=== PATIENT | male | born 1950 | race Caucasian/White ===

== ENCOUNTER 2016-10-13 21:17 | Inpatient (IN) ==
[2016-10-13] MEDS ORDERED: 0.9 % Sodium Chloride 1,000 ML IVC ONE (22:35)
[2016-10-13 23:37] LABS: Basophils % 0.1 %; Eosinophils % 0.1 %; Hematocrit 45.7 % (37.5-50.1); Hemoglobin 15.1 g/dL (12.9-16.9); Immature Granulocytes % 0.6 % (0-4); Lymphocytes # 0.6 K/mcL (0.6-4.6); Lymphocytes % 3.7 %; Mean Corpuscular Hemoglobin 30.8 pg (28.0-33.3); Mean Corpuscular Volume 93.1 fL (83.0-100.0); Mean Platelet Volume 9.4 fL (9.4-12.4); Monocytes # 0.9 K/mcL (0.0-1.3); Monocytes % 5.8 %; Neutrophils # 13.2 K/mcL (1.6-8.9); Platelet Count 144 K/mcL (140-400); Red Blood Count 4.91 M/mcL (4.19-5.50); Red Cell Distribution Width 13.7 % (11.5-14.5); Segmented Neutrophils % 89.7 %
[2016-10-13 23:53] LABS: Alanine Aminotransferase 28 Units/L (0-55); Albumin 3.7 g/dL (3.5-5.0); Alkaline Phosphatase 95 Units/L (38-126); Aspartate Amino Transferase 28 Units/L (5-34); BUN/Creatinine Ratio 14 (6-26); Bilirubin,Total 1.5 mg/dL (0.2-1.2); Blood Urea Nitrogen 17 mg/dL (8-26); Calcium 10.1 mg/dL (8.6-10.8); Carbon Dioxide 23 mEq/L (19-29); Chloride 105 mEq/L (98-109); Globulin 3.7 g/dL (2.4-3.5); Glucose 113 mg/dL (70-99); Magnesium 1.4 mg/dL (1.6-2.6); Osmolality,Calculated 288 (280-300); Potassium 3.8 mEq/L (3.5-4.5); Sodium 138 mEq/L (136-145); Total Protein 7.4 g/dL (6.0-8.3); eGFR For African Americans > 60 (> 60); eGFR For Non-African Americans 58 (> 60)
[2016-10-13 23:56] LABS: Phosphorous < 0.7 mg/dL (2.3-4.7)
[2016-10-14 00:45] LABS: Thyroid Stimulating Hormone 1.512 mcIU/mL (0.350-4.840)
[2016-10-14] MEDS ORDERED: Vancomycin 1,000 MG in D5% in Water 250 ML IVPB ONE (00:59)
[2016-10-14] MEDS ORDERED: *HR* Morphine 2 MG/ML SYRINGE IVP ONE (00:59)
[2016-10-14] MEDS ORDERED: Lidocaine Jelly 11 ml Syringe TP ONE (00:59)
[2016-10-14] MEDS ORDERED: Ondansetron 4 MG/2 ML VIAL IVP ONE (00:59)
--- NOTE | 2016-10-14 02:00 | Emergency Department Note ---
Disposition Clinical Impression: Altered mental status Sepsis Qualifiers: Sepsis type: sepsis due to unspecified organism Qualified Code(s): A41.9 - Sepsis, unspecified organism Disposition: Admitted As Inpatient Condition: Fair General Adult HPI - General Chief complaint: ED Weakness Stated complaint: AMS onset 2 hours ago Time Seen by Provider: 10/13/16 22:34 Source: family Mode of arrival: private vehicle Limitations: no limitations Nursing Notes Reviewed: Yes Vital Signs Reviewed: Yes - History of Present Illness HPI Narrative: 66-year-old male presents to the emergency department with concerns of a possible early cellulitis and altered mental status. at the bedside states that patient has had several episodes of lower extremity cellulitis and "this is usually how it presents." Additionally, notes that patient has had elevated ammonia levels in the past. She denies any recent head injury or trauma. Patient is alert and oriented 3. Pain Scale: 0 Consistency: constant Improves with: nothing Worsens with: nothing Associated symptoms: Reports: fever/chills, malaise Treatments Prior to Arrival: none - Related Data Home Medications Medication Instructions Recorded Confirmed Omeprazole [PriLOSEC] 20 mg PO DAILY 09/28/14 10/14/16 Propranolol [Inderal] 10 mg PO BID 09/28/14 10/14/16 Warfarin [Coumadin] 7.5 mg PO QAM 09/28/14 10/14/16 FLUoxetine HCl [PROzac] 10 mg PO DAILY 10/14/16 10/14/16 Tramadol HCl [Ultram] 50 mg PO TID PRN 10/14/16 10/14/16 Allergies Allergy/AdvReac Type Severity Reaction Status Date / Time citalopram [From Celexa] AdvReac Mild Headache Verified 10/13/16 21:57 All systems ED: reviewed and negative except as stated. Constitutional: Reports: fever, chills Cardiovascular: Denies: chest pain Respiratory: Denies: dyspnea Gastrointestinal: Denies: abdominal pain, nausea, vomiting Musculoskeletal: Denies: back pain, neck pain Integumentary: Denies: rash, abrasion, lesions Neurological: Denies: headache Psychiatric: Denies: anxiety, depression, suicidal thoughts, homicidal thoughts Past Medical History - Past Medical History Attestation: Yes The following information was validated with the patient. Source: patient, nursing notes reviewed Medical history: Reports: DVT, GERD, hypertension, other Surgical history: Reports: appendectomy, bariatric surgery, cholecystectomy Psychiatric history: Reports: depression - Social History Smoking Status: Never smoker Smokeless Tobacco Status: No Alcohol use: Reports: occasionally Drug use: Reports: none Physical Exam - General Limitations: no limitations General appearance: alert, in no apparent distress - Head Head exam: atraumatic, normocephalic, normal inspection - Eye Eye exam: Present: normal appearance, PERRL - Neck Neck exam: Present: normal inspection, full ROM, trachea midline - Chest Chest inspection: Present: normal inspection, symmetric chest wall rise - Respiratory Respiratory exam: Present: normal lung sounds bilaterally - Cardiovascular Cardiovascular exam: Present: regular rate, normal rhythm, normal heart sounds - Extremities Exam Extremities exam: Present: normal inspection, full ROM. Absent: tenderness, pedal edema - Expanded Lower Extremity Exam Gait: observed and normal - Back Exam Back exam: Present: normal inspection, full ROM. Absent: tenderness - Neurological Exam Neurological exam: Present: alert, oriented X3 - Psychiatric Psychiatric exam: Present: normal affect, normal mood - Skin Skin exam: Present: other Course Course Narrative: Patient presented tachycardic, somnolent and appears ill on exam. Workup shows an elevation in his white blood cell count as well as an elevated lactic acid. Left leg is erythematous and consistent with early cellulitis. Erythema and induration extends from the ankle up to the upper thigh. Plan is to admit patient to the hospitalist for IV antibiotics and observation. - Consultations Consultation #1: Patient accepted by the hospitalist. Vital Signs Temperature 98.7 F 10/13/16 21:50 Pulse Rate 120 10/13/16 21:50 Respiratory Rate 20 10/13/16 21:50 Blood Pressure 133/74 10/13/16 21:50 O2 Sat by Pulse Oximetry 93 10/13/16 21:50 Temperature 97.9 F 10/19/16 11:02 Pulse Rate 88 10/19/16 11:02 Respiratory Rate 14 10/19/16 11:02 Blood Pressure 144/83 10/19/16 11:02 O2 Sat by Pulse Oximetry 97 10/19/16 11:02 Oxygen Delivery Oxygen Delivery Nasal Cannula Medical Decision Making - Lab Data Lab results reviewed: Yes I reviewed the patient's lab results. Result diagrams: 10/19/16 05:00 10/19/16 05:00 Lab Results 10/13/16 10/13/16 10/13/16 Range/Units 22:02 23:23 23:23 WBC 14.7 H (4.3-11.1) K/mcL RBC 4.91 (4.19-5.50) M/mcL Hgb 15.1 (12.9-16.9) g/dL Hct 45.7 (37.5-50.1) % MCV 93.1 (83.0-100.0) fL MCH 30.8 (28.0-33.3) pg MCHC 33.0 (31.6-35.5) g/dL RDW 13.7 (11.5-14.5) % Plt Count 144 (140-400) K/mcL MPV 9.4 (9.4-12.4) fL Immature Gran % 0.6 (0-4) % Seg Neutrophils % 89.7 % Lymphocytes % 3.7 % Monocytes % 5.8 % Eosinophils % 0.1 % Basophils % 0.1 % Neutrophils # 13.2 H (1.6-8.9) K/mcL Lymphocytes # 0.6 (0.6-4.6) K/mcL Monocytes # 0.9 (0.0-1.3) K/mcL Eosinophils # 0.0 (0.0-0.6) K/mcL Basophils # 0.0 (0.0-0.2) K/mcL PT (9.4-12.1) Seconds INR Sodium 138 (136-145) mEq/L Potassium 3.8 (3.5-4.5) mEq/L Chloride 105 (98-109) mEq/L Carbon Dioxide 23 (19-29) mEq/L BUN 17 (8-26) mg/dL Creatinine 1.25 (0.72-1.25) mg/dL Est GFR ( Amer) > 60 (> 60) Est GFR (Non-Af Amer) 58 L (> 60) BUN/Creatinine Ratio 14 (6-26) Glucose 113 H (70-99) mg/dL POC Glucose 124 H (58-89) Calculated Osmolality 288 (280-300) Lactic Acid (0.5-2.2) mmol/L Calcium 10.1 (8.6-10.8) mg/dL Phosphorus < 0.7 L* (2.3-4.7) mg/dL Magnesium 1.4 L (1.6-2.6) mg/dL Total Bilirubin 1.5 H (0.2-1.2) mg/dL AST 28 (5-34) Units/L ALT 28 (0-55) Units/L Alkaline Phosphatase 95 (38-126) Units/L Ammonia (18-72) mcmol/L Troponin I (0-0.03) ng/mL Serum Total Protein 7.4 (6.0-8.3) g/dL Albumin 3.7 (3.5-5.0) g/dL Globulin 3.7 H (2.4-3.5) g/dL Albumin/Globulin Ratio 1.0 L (1.1-2.2) TSH 1.512 (0.350-4.840) mcIU/mL Urine Color (Yellow) Urine Clarity (Clear) Urine pH (5.0-8.0) pH Units Ur Specific [place] (1.010-1.025) Urine Protein (Neg-Trace) mg/dL Urine Glucose (UA) (Normal) mg/dL Urine Ketones (Negative) mg/dL Urine Blood (Negative) Urine Nitrite (Negative) Urine Bilirubin (Negative) Urine Urobilinogen (Normal) mg/dL Ur Leukocyte Esterase (Negative) Urine Microscopic RBC (0-3) per hpf Urine Microscopic WBC (0-3) per hpf Ur Squamous Epith Cells (None-Few) per lpf Urine Bacteria (None-Few) per hpf Hyaline Casts (None-Few) per lpf Urine Yeast Ur Culture Indicated? (NO) 10/13/16 10/13/16 10/13/16 Range/Units 23:23 23:23 23:23 WBC (4.3-11.1) K/mcL RBC (4.19-5.50) M/mcL Hgb (12.9-16.9) g/dL Hct (37.5-50.1) % MCV (83.0-100.0) fL MCH (28.0-33.3) pg MCHC (31.6-35.5) g/dL RDW (11.5-14.5) % Plt Count (140-400) K/mcL MPV (9.4-12.4) fL Immature Gran % (0-4) % Seg Neutrophils % % Lymphocytes % % Monocytes % % Eosinophils % % Basophils % % Neutrophils # (1.6-8.9) K/mcL Lymphocytes # (0.6-4.6) K/mcL Monocytes # (0.0-1.3) K/mcL Eosinophils # (0.0-0.6) K/mcL Basophils # (0.0-0.2) K/mcL PT (9.4-12.1) Seconds INR Sodium (136-145) mEq/L Potassium (3.5-4.5) mEq/L Chloride (98-109) mEq/L Carbon Dioxide (19-29) mEq/L BUN (8-26) mg/dL Creatinine (0.72-1.25) mg/dL Est GFR ( Amer) (> 60) Est GFR (Non-Af Amer) (> 60) BUN/Creatinine Ratio (6-26) Glucose (70-99) mg/dL POC Glucose (58-89) Calculated Osmolality (280-300) Lactic Acid 2.5 H (0.5-2.2) mmol/L Calcium (8.6-10.8) mg/dL Phosphorus (2.3-4.7) mg/dL Magnesium (1.6-2.6) mg/dL Total Bilirubin (0.2-1.2) mg/dL AST (5-34) Units/L ALT (0-55) Units/L Alkaline Phosphatase (38-126) Units/L Ammonia 35 (18-72) mcmol/L Troponin I 0.00 (0-0.03) ng/mL Serum Total Protein (6.0-8.3) g/dL Albumin (3.5-5.0) g/dL Globulin (2.4-3.5) g/dL Albumin/Globulin Ratio (1.1-2.2) TSH (0.350-4.840) mcIU/mL Urine Color (Yellow) Urine Clarity (Clear) Urine pH (5.0-8.0) pH Units Ur Specific [place] (1.010-1.025) Urine Protein (Neg-Trace) mg/dL Urine Glucose (UA) (Normal) mg/dL Urine Ketones (Negative) mg/dL Urine Blood (Negative) Urine Nitrite (Negative) Urine Bilirubin (Negative) Urine Urobilinogen (Normal) mg/dL Ur Leukocyte Esterase (Negative) Urine Microscopic RBC (0-3) per hpf Urine Microscopic WBC (0-3) per hpf Ur Squamous Epith Cells (None-Few) per lpf Urine Bacteria (None-Few) per hpf Hyaline Casts (None-Few) per lpf Urine Yeast Ur Culture Indicated? (NO) 10/14/16 10/14/16 10/14/16 Range/Units 01:57 11:33 14:35 WBC (4.3-11.1) K/mcL RBC (4.19-5.50) M/mcL Hgb (12.9-16.9) g/dL Hct (37.5-50.1) % MCV (83.0-100.0) fL MCH (28.0-33.3) pg MCHC (31.6-35.5) g/dL RDW (11.5-14.5) % Plt Count (140-400) K/mcL MPV (9.4-12.4) fL Immature Gran % (0-4) % Seg Neutrophils % % Lymphocytes % % Monocytes % % Eosinophils % % Basophils % % Neutrophils # (1.6-8.9) K/mcL Lymphocytes # (0.6-4.6) K/mcL Monocytes # (0.0-1.3) K/mcL Eosinophils # (0.0-0.6) K/mcL Basophils # (0.0-0.2) K/mcL PT 24.0 H (9.4-12.1) Seconds INR 2.2 Sodium (136-145) mEq/L Potassium (3.5-4.5) mEq/L Chloride (98-109) mEq/L Carbon Dioxide (19-29) mEq/L BUN (8-26) mg/dL Creatinine (0.72-1.25) mg/dL Est GFR ( Amer) (> 60) Est GFR (Non-Af Amer) (> 60) BUN/Creatinine Ratio (6-26) Glucose (70-99) mg/dL POC Glucose (58-89) Calculated Osmolality (280-300) Lactic Acid 2.9 H (0.5-2.2) mmol/L Calcium (8.6-10.8) mg/dL Phosphorus (2.3-4.7) mg/dL Magnesium (1.6-2.6) mg/dL Total Bilirubin (0.2-1.2) mg/dL AST (5-34) Units/L ALT (0-55) Units/L Alkaline Phosphatase (38-126) Units/L Ammonia (18-72) mcmol/L Troponin I (0-0.03) ng/mL Serum Total Protein (6.0-8.3) g/dL Albumin (3.5-5.0) g/dL Globulin (2.4-3.5) g/dL Albumin/Globulin Ratio (1.1-2.2) TSH (0.350-4.840) mcIU/mL Urine Color Dark Yellow (Yellow) Urine Clarity Cloudy A (Clear) Urine pH 6.0 (5.0-8.0) pH Units Ur Specific [place] 1.020 (1.010-1.025) Urine Protein Trace (Neg-Trace) mg/dL Urine Glucose (UA) Normal (Normal) mg/dL Urine Ketones Trace H (Negative) mg/dL Urine Blood Moderate H (Negative) Urine Nitrite Negative (Negative) Urine Bilirubin Small H (Negative) Urine Urobilinogen Normal (Normal) mg/dL Ur Leukocyte Esterase Small H (Negative) Urine Microscopic RBC 3-5 H (0-3) per hpf Urine Microscopic WBC 5-15 H (0-3) per hpf Ur Squamous Epith Cells Moderate H (None-Few) per lpf Urine Bacteria Moderate H (None-Few) per hpf Hyaline Casts Few (None-Few) per lpf Urine Yeast Test Not Performed Ur Culture Indicated? YES A (NO) - Radiology Data Radiology results reviewed: Yes I reviewed the patient's radiology results. Attestation Statement - Attestation Attestation: I, Hiram Godfrey MD, personally evaluated this patient and discussed their management with the midlevel provicer, PAC/PMP. I reviewed the midlevel provider 's note and agree with the documented findings, medical decision making, and plan of care. 66-year-old male presents to the emergency department with complaining of increased confusion and generalized weakness was just started this evening. She reports it usually gets like this when he has an infection. He has a history of cellulitis of his right leg. Tonight he complains of some pain in the left lateral thigh. He has not noticed any fever. He denies any chest pain. He does admit to some mild shortness of breath. No vomiting or diarrhea. No abdominal pain. No GI bleed symptoms. No UTI symptoms. On examination patient is a well-developed morbidly obese elderly male in no acute distress. He is alert. There is no cyanosis or diaphoresis. Chest is nontender to palpation. Breath sounds are clear and equal bilaterally. Heart regular rate and rhythm. Abdomen soft and nontender with normal bowel sounds. There is erythema and warmth to touch with induration over the mid to lower left lateral thigh. This area is moderately tender to palpation. There is also some mild erythema at the left lower leg. Chest x-ray negative. Head CT negative. Labs reviewed. The hospitalist, Dr. Hancock, was consulted and accepted admission of the patient.
[2016-10-14 02:11] LABS: Bilirubin,Urine Small (Negative); Blood,Urine Moderate (Negative); Clarity,Urine Cloudy (Clear); Color,Urine Dark Yellow (Yellow); Glucose,Urine (UA) Normal (Normal); Ketones,Urine Trace mg/dL (Negative); Leukocyte Esterase,Urine Small (Negative); Nitrite,Urine Negative (Negative); Protein,Urine Trace mg/dL (Neg-Trace); Urobilinogen,Urine Normal (Normal)
[2016-10-14 02:13] LABS: Hyaline Casts,Urine Few per lpf (None-Few)
[2016-10-14 02:26] LABS: Bacteria,Urine Moderate per hpf (None-Few); Squamous Epithelial Cell,Urine Moderate per lpf (None-Few)
[2016-10-14] MEDS ORDERED: Naloxone 0.4 MG/ML INJ IVP PRN (08:22)
[2016-10-14] MEDS ORDERED: Ondansetron 4 MG/2 ML VIAL IVP PRN (08:22)
[2016-10-14] MEDS ORDERED: Magnesium Sulfate 2 GM in D5% in Water 100 ML IVPB ONE (08:25)
[2016-10-14] MEDS: Vancomycin 2,000 MG in D5% in Water 500 ML IVPB SCH (10:47)
[2016-10-14] MEDS: Pantoprazole 40 MG VIAL IVP SCH (10:48)
[2016-10-14] MEDS ORDERED: Sodium Phosphate 30 MMOL in D5% in Water 100 ML IVPB ONE (11:03)
--- NOTE | 2016-10-14 11:13 | Internal Med History&Physical ---
<Gabi Chapman - Last Filed: 10/14/16 16:07> Date of Encounter: 10/14/16 Time of Encounter: 10:00 Assessment and Plan (1) Sepsis Current visit: Yes Status: Acute 1 patient presented with acute onset confusion tachycardic elevated lactate leukocytosis-blood cultures were obtained patient was given IV fluid and antibiotic coverage-we will continue with vancomycin and Rocephin 2 we will give IV fluids 3 continue trending lactates 4 continuous cardiac monitoring 5 monitor intake and output daily weights Qualifiers: Sepsis type: sepsis due to unspecified organism Qualified Code(s): A41.9 - Sepsis, unspecified organism (2) Metabolic encephalopathy Current visit: Yes Status: Acute 1 patient has been experiencing increased confusion over the past 24 hours. Most likely related to infectious process-cellulitis as well as UTI we will continue IV fluids and antibiotics and monitor lactate level. 2 place patient on fall precautions (3) Cellulitis Current visit: Yes Status: Acute 1 we will continue with vancomycin-blood cultures have been obtained 2 we will obtain a venous Doppler to rule out possibility of DVT Qualifiers: Site of cellulitis: extremity Site of cellulitis of extremity: lower extremity Laterality: left Qualified Code(s): L03.116 - Cellulitis of left lower limb (4) UTI (urinary tract infection) Current visit: Yes Status: Acute 1 we will continue with zosyn pending culture sensitivity 2 continue with IV fluids Qualifiers: Urinary tract infection type: acute cystitis Hematuria presence: with hematuria Qualified Code(s): N30.01 - Acute cystitis with hematuria (5) Hypertension Current visit: No Status: Chronic 1 presently controlled we will hold antihypertensives due to sepsis and resume prior to discharge Qualifiers: Hypertension type: essential hypertension Qualified Code(s): I10 - Essential (primary) hypertension (6) DVT, lower extremity, recurrent Current visit: No Status: Chronic 1 patient has history of recurrent DVTs. We will obtain venous Doppler of left leg to rule out possibility DVT. Unsure if he has been taking his Coumadin due to his confusion. We will check coags. We will continue with his Coumadin Qualifiers: Laterality: bilateral Qualified Code(s): I82.403 - Acute embolism and thrombosis of unspecified deep veins of lower extremity, bilateral Internal Medicine - H&P: HPI Chief complaint: Altered mental state Admitted From: Emergency Dept Plans for Post Hospital Care: Home History of present illness: Mr. Villegas is a 66 year old male past medical history of recurrent DVTs most recent was 11/20, rheumatic fever chronic cellulitis depression. Information obtained from medical records due to patient is confused. According to emergency room records patient was brought to Hospital per his that he has been experiencing confusion and previously when he had cellulitis as well as a small bowel obstruction he was confused and ammonia was elevated. Upon presentation patient was tachycardic lab work revealed leukocytosis as well as elevated lactate. His lower left leg was erythematous extending from ankle up to upper thigh. CT of head was obtained which was negative ammonia levels within normal limits urinalysis did reveal UTI. She was given IV fluids and IV antibiotics blood cultures have been obtained. Upon assessment patient is alert and oriented to name and he knows that he is in the hospital and visits the year 2016 however on questioning what happened to him to bring her to the hospital he repeatedly states that he has to urinate. His lung sounds are clear heart sounds are regular abdomen soft nontender. Right leg is discolored from carrion down to ankles pulses are present but weak. Left leg has swelling and redness extending from ankle to thigh tender to touch and warm. Pulses are strong bilaterally. He is hemodynamically stable at this time. I reviewed this case with Dr. Wooten who agrees with plan. 6 Past Med Surg Social Fam HX - Past Medical History Medical history: DVT, GERD, hypertension, other Psychiatric history: depression - Past Surgical History Surgical History: appendectomy, bariatric surgery, cholecystectomy - Social History Smoking Status: Never smoker Smokeless Tobacco Status: No Alcohol use: occasionally Drug use: none - Family History Mother Living Status: Still Living Hx Family Cardiac Disorders: Yes (CVA) Father Living Status: Hx Family Cardiac Disorders: Yes Internal Medicine - H&P: Meds Omeprazole [PriLOSEC] 20 mg PO DAILY 09/28/14 [History] Propranolol [Inderal] 10 mg PO BID 09/28/14 [History] Warfarin [Coumadin] 7.5 mg PO QAM 09/28/14 [History] FLUoxetine HCl [PROzac] 10 mg PO DAILY 10/14/16 [History] Tramadol HCl [Ultram] 50 mg PO TID PRN 10/14/16 [History] 3 Allergy/AdvReac Type Severity Reaction Status Date / Time citalopram [From Celexa] AdvReac Mild Headache Verified 10/13/16 21:57 ROS unobtainable: due to mental status All Systems PM: A 10-system review of systems was performed and is negative for pertinent findings except as documented above in the HPI. - Constitutional Vitals: Temp Pulse Resp BP Pulse Ox 98.6 F 94 15 135/79 93 10/14/16 07:27 10/14/16 07:27 10/14/16 07:27 10/14/16 07:27 10/14/16 07:27 General appearance: Present: A&O X 3 Exam: He is unable to answer questions she continually repeats I have to urinate-and talks about how he has been incontinent - Head Head exam: Present: atraumatic, normocephalic - Eye Eye exam: Present: PERRL, conjuntiva pink, sclera anicteric Pupils: Present: PERRL - Neck Neck exam general surgery: Present: supple, trachea midline. Absent: lymphadenopathy - Respiratory Respiratory exam: Present: CTAB. Absent: accessory muscle use, rales, rhonchi, wheezes - Cardiovascular Cardiovascular exam: Present: RRR, +S1, +S2. Absent: diastolic murmur, gallop, rubs, systolic murmur - GI/Abdominal GI/Abdominal exam: Present: normal bowel sounds, soft, no peritoneal signs. Absent: distended, tenderness - Extremities Exam Extremities exam: Present: tenderness, warm, radial pulses palpable and symmetrical. Absent: calf tenderness, cyanotic, pedal edema - Expanded Lower Extremities Exam Lower Leg exam: Present: erythema, swelling, tenderness - Neurological Exam Neurological exam: Present: altered, CN II-XII intact, strengths equal and symetr throughout - Skin Skin exam: Present: dry, intact Internal Med - H&P Results - Labs CBC & Chem 7: 10/13/16 23:23 10/13/16 23:23 - Diagnostic Studies Other Images Additional comments: Chest X-Ray 10/13/16 22:35 IMPRESSION: Negative portable chest. D/ / Mina Lobato MD / Mina Lobato MD Interpreting Provider: Mina Lobato MD Head CT 10/13/16 22:35 IMPRESSION: No acute intracranial abnormality. D/ / Mina Lobato MD / Mina Lobato MD Interpreting Provider: Mina Lobato MD <Wilmer Wooten - Last Filed: 10/15/16 07:43> Date of Encounter: 10/14/16 Internal Medicine - H&P: HPI History of present illness: Mr. Villegas is a 66 year old male All Systems PM: A 10-system review of systems was performed and is negative for pertinent findings except as documented above in the HPI. - Constitutional Vitals: Temp Pulse Resp BP Pulse Ox 99.0 F 89 16 128/73 93 10/14/16 11:16 10/14/16 11:16 10/14/16 11:16 10/14/16 11:16 10/14/16 11:16 Internal Med - H&P Results - Labs CBC & Chem 7: 10/15/16 04:10 10/15/16 04:10 - Attending Attestation I independently obtained history and examined this patient and my medical decision-making was reviewed with the nurse practitioner, Gabi Chapman. I agree with the documented findings, disposition and treatment plan as described. My findings are summarized below: Patient presented to the hospital due to leg redness and pain, family reported that he was slightly altered from his baseline. On my examination he is in no acute distress, awake alert oriented 3. Heart is regular, lungs are clear, abdomen is obese, soft and nontender Skin: Erythema and warmth consistent with cellulitis of the distal left lower leg in patchy areas of erythema also noted in the left calf and buttocks. Plan: For left lower extremity cellulitis we will treat him with IV vancomycin. He also has altered mental status, CT of the head was negative for acute process. UA was positive for leukocyte and WBC concerning for UTI. I will therefore add Zosyn to his antibiotic therapy. He is chronically anticoagulated with warfarin for history of DVT. I will obtain a PT/INR. We will continue with warfarin.
[2016-10-14] MEDS: *HR* HYDROcodone/Acet 5/325 mg TABLET PO PRN (11:44)
[2016-10-14] MEDS: 0.9 % Sodium Chloride 1,000 ML IVC SCH (13:18)
[2016-10-14] MEDS ORDERED: 0.9 % Sodium Chloride 1,000 ML IVC ONE (14:49)
[2016-10-14 15:06] LABS: INR 2.2
[2016-10-14] MEDS ORDERED: Warfarin perPT PO PRN (18:00)
[2016-10-14] MEDS: Acetaminophen 325 MG TABLET PO PRN (19:24)
[2016-10-14] MEDS: *HR* Warfarin 7.5 MG TABLET PO SCH (19:25)
[2016-10-15] MEDS: Vancomycin 2,000 MG in D5% in Water 500 ML IVPB SCH ×2 (01:31→12:12)
[2016-10-15] MEDS: Acetaminophen 325 MG TABLET PO PRN ×2 (03:31→09:25)
[2016-10-15] MEDS: 0.9 % Sodium Chloride 1,000 ML IVC SCH ×3 (03:32→16:08)
[2016-10-15 04:34] LABS: Basophils % 0.1 %; Hematocrit 37.6 % (37.5-50.1); Immature Granulocytes % 1.6 % (0-4); Lymphocytes # 0.6 K/mcL (0.6-4.6); Lymphocytes % 4.6 %; Mean Corpuscular HGB Conc 33.8 g/dL (31.6-35.5); Mean Corpuscular Hemoglobin 31.4 pg (28.0-33.3); Mean Corpuscular Volume 92.8 fL (83.0-100.0); Mean Platelet Volume 9.6 fL (9.4-12.4); Monocytes # 0.4 K/mcL (0.0-1.3); Monocytes % 2.9 %; Platelet Count 110 K/mcL (140-400); Red Blood Count 4.05 M/mcL (4.19-5.50); Red Cell Distribution Width 14.3 % (11.5-14.5); Segmented Neutrophils % 90.8 %
[2016-10-15 04:41] LABS: Prothrombin Time 21.9 Seconds (9.4-12.1)
[2016-10-15 04:50] LABS: Hemoglobin 12.7 g/dL (12.9-16.9); Neutrophils # 12.4 K/mcL (1.6-8.9)
[2016-10-15 04:52] LABS: BUN/Creatinine Ratio 18 (6-26); Blood Urea Nitrogen 22 mg/dL (8-26); Calcium 8.8 mg/dL (8.6-10.8); Carbon Dioxide 22 mEq/L (19-29); Chloride 101 mEq/L (98-109); Glucose 137 mg/dL (70-99); Magnesium 1.5 mg/dL (1.6-2.6); Osmolality,Calculated 277 (280-300); Phosphorous 1.6 mg/dL (2.3-4.7); Potassium 3.6 mEq/L (3.5-4.5); eGFR For African Americans > 60 (> 60); eGFR For Non-African Americans > 60 (> 60)
[2016-10-15 04:53] LABS: Sodium 131 mEq/L (136-145)
[2016-10-15 05:12] LABS: Platelet Estimate Decreased (Normal)
[2016-10-15] MEDS ORDERED: *HR* Enoxaparin 40 MG/0.4 ML SYRINGE SQ SCH (06:00)
--- NOTE | 2016-10-15 08:25 | Venous Imaging Report ---
LE Venous Duplex Patient Name:David Villegas Order Number:[id number] Procedure Date:10/14/2016 Date:1950ge:66 yrs Gender:Male Location:[facility] Room #: 3B11 Manager Therapy:Gloria Botello RDCS Referring MD:Gabi Chapman CNP infantryman:Corine Clancy MD Reading MD:Gonzalez Duenas MD Primary Indications:Swelling, redness, tenderness left LE Secondary Indications: Risk Factors Yes/No Hx of DVT Unknown Anticoagulants Impressions: Normal left lower extremity deep and superficial venous exam. Normal contralateral common femoral vein. Findings Prior Study: No prior study available for comparison. Lower Extremity Venous Duplex Side Vein Compress Spontaneous Flow Augment Diameter (cm) Depth (cm) Left Distal Iliac Normal Yes Phasic Yes Left Common Femoral Normal Yes Phasic Yes Left Superficial Femoral Normal Yes Phasic Yes Left Popliteal Normal Yes Phasic Yes Left Posterior Tibial Normal Yes Phasic Yes Left Peroneal Normal Yes Phasic Yes Left Saphenofemoral [place] Normal Yes Phasic Yes Left Great Saphenous Normal Yes Phasic Yes Left Lesser Saphenous Normal Yes Phasic Yes Right Common Femoral Normal Yes Phasic Yes Updated by Gonzalez Duenas MD on 10/15/2016 7:22:50 AM electronically signed on 10/15/2016 7:23:03 AM with status of Final
[2016-10-15] MEDS ORDERED: Vancomycin (wt based) 1,000 MG VIAL IVPB SCH (09:00)
[2016-10-15] MEDS: Pantoprazole 40 MG VIAL IVP SCH (09:25)
[2016-10-15] MEDS: FLUoxetine HCl 10 MG CAPSULE PO SCH (09:25)
[2016-10-15] MEDS: Piperacillin/Tazobactam 3.375 GM in D5% in Water (Mini-Bag+) 100 ML IVPB SCH (16:08)
[2016-10-15] MEDS: *HR* Warfarin 7.5 MG TABLET PO SCH (17:18)
--- NOTE | 2016-10-15 20:17 | Internal Med Progress Note ---
Date of Encounter: 10/15/16 Time of Encounter: 09:00 - Assessment and plan (1) Morbid obesity with BMI of 45.0-49.9, adult Current Visit: Yes Status: Acute Assessment and plan: Outpatient weight loss regimen. (2) Sepsis Current Visit: Yes Status: Acute Assessment and plan: Broad spectrum IV antibiotics. Follow-up blood cultures. Qualifiers: Sepsis type: sepsis due to unspecified organism Qualified Code(s): A41.9 - Sepsis, unspecified organism (3) Cellulitis Current Visit: Yes Status: Acute Assessment and plan: Continue IV vancomycin. Qualifiers: Site of cellulitis: extremity Site of cellulitis of extremity: lower extremity Laterality: left Qualified Code(s): L03.116 - Cellulitis of left lower limb (4) UTI (urinary tract infection) Current Visit: Yes Status: Acute Assessment and plan: Follow-up culture. Continue with Zosyn and vancomycin. Qualifiers: Urinary tract infection type: acute cystitis Hematuria presence: with hematuria Qualified Code(s): N30.01 - Acute cystitis with hematuria (5) Metabolic encephalopathy Current Visit: Yes Status: Acute Assessment and plan: Improved with treatment of sepsis. Avoid sedatives. He is at high risk for morbidity mortality and complications due to IV vancomycin which requires blood level monitoring for toxicity. - Subjective Interval history: Patient admitted for altered mental status and left lower extremity pain and redness. Reports that mental status has improved since yesterday. No changes in lower extremity pain and redness. - Constitutional Vitals: Temp Pulse Resp BP Pulse Ox 98.8 F 98 18 150/88 96 10/15/16 18:59 10/15/16 18:59 10/15/16 18:59 10/15/16 18:59 10/15/16 18:59 General appearance: Present: A&O X 3 - Eye Eye exam: Present: PERRL, conjuntiva pink, sclera anicteric Pupils: Present: PERRL - Respiratory Respiratory exam: Present: CTAB. Absent: accessory muscle use, rales, rhonchi, wheezes - Cardiovascular Cardiovascular exam: Present: RRR, +S1, +S2. Absent: diastolic murmur, gallop, rubs, systolic murmur - GI/Abdominal GI/Abdominal exam: Present: normal bowel sounds, soft, no peritoneal signs. Absent: distended, tenderness - Extremities Exam Extremities exam: Present: pedal edema, warm, radial pulses palpable and symmetrical. Absent: calf tenderness, cyanotic - Skin Skin exam: Present: erythema (Left lower leg erythema consistent with cellulitis ) Internal Medicine: Result - Labs CBC & Chem 7: 10/15/16 04:10 10/15/16 04:10 Labs: Short CBC 10/15/16 Range/Units 04:10 WBC 13.7 H (4.3-11.1) K/mcL Hgb 12.7 L D (12.9-16.9) g/dL Hct 37.6 (37.5-50.1) % Plt Count 110 L (140-400) K/mcL Neutrophils # 12.4 H (1.6-8.9) K/mcL BMP 10/15/16 04:10 Sodium 131 L D Potassium 3.6 Chloride 101 Carbon Dioxide 22 BUN 22 Creatinine 1.21 Glucose 137 H Calcium 8.8 - ABG Interpretation ABG results: PT/INR, D-dimer PT 21.9 Seconds (9.4-12.1) H 10/15/16 04:10 Consult Discharge Plan - Plan Referrals: Corine Clancy MD [Primary Care Provider] - 10/23/16 1:45 pm
[2016-10-16] MEDS: Piperacillin/Tazobactam 3.375 GM in D5% in Water (Mini-Bag+) 100 ML IVPB SCH ×3 (01:18→23:21)
[2016-10-16] MEDS: Acetaminophen 325 MG TABLET PO PRN ×2 (01:37→07:48)
[2016-10-16] MEDS: Melatonin 3 MG TABLET PO PRN ×2 (02:10→23:26)
[2016-10-16] MEDS: 0.9 % Sodium Chloride 1,000 ML IVC SCH ×2 (02:14→14:30)
[2016-10-16] MEDS ORDERED: Vancomycin 1,750 MG in D5% in Water 500 ML IVPB SCH (06:00)
[2016-10-16 06:19] LABS: Basophils % 0.2 %; Eosinophils % 0.3 %; Hematocrit 35.3 % (37.5-50.1); Immature Granulocytes % 0.8 % (0-4); Lymphocytes # 1.1 K/mcL (0.6-4.6); Lymphocytes % 10.4 %; Mean Corpuscular Hemoglobin 31.5 pg (28.0-33.3); Mean Corpuscular Volume 92.7 fL (83.0-100.0); Mean Platelet Volume 9.7 fL (9.4-12.4); Monocytes # 0.6 K/mcL (0.0-1.3); Monocytes % 5.5 %; Neutrophils # 8.9 K/mcL (1.6-8.9); Nucleated Red Blood Cells 0.2 /100 WBC (0); Platelet Count 124 K/mcL (140-400); Red Blood Count 3.81 M/mcL (4.19-5.50); Red Cell Distribution Width 14.3 % (11.5-14.5); Segmented Neutrophils % 82.8 %
[2016-10-16 06:30] LABS: INR 1.9; Prothrombin Time 20.4 Seconds (9.4-12.1)
[2016-10-16 06:33] LABS: BUN/Creatinine Ratio 13 (6-26); Blood Urea Nitrogen 13 mg/dL (8-26); Calcium 9.3 mg/dL (8.6-10.8); Carbon Dioxide 27 mEq/L (19-29); Chloride 106 mEq/L (98-109); Glucose 107 mg/dL (70-99); Osmolality,Calculated 283 (280-300); Potassium 3.6 mEq/L (3.5-4.5); Sodium 136 mEq/L (136-145); eGFR For African Americans > 60 (> 60); eGFR For Non-African Americans > 60 (> 60)
[2016-10-16 06:44] LABS: Platelet Estimate Decreased (Normal)
[2016-10-16] MEDS: FLUoxetine HCl 10 MG CAPSULE PO SCH (07:48)
[2016-10-16] MEDS: Pantoprazole 40 MG VIAL IVP SCH (07:48)
--- NOTE | 2016-10-16 12:27 | Electrocardiograph Report ---
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
[2016-10-16] MEDS: *HR* Warfarin 7.5 MG TABLET PO SCH (17:25)
[2016-10-16] MEDS ORDERED: Vancomycin 1,250 MG in D5% in Water 250 ML IVPB SCH (18:00)
--- NOTE | 2016-10-16 19:48 | Internal Med Progress Note ---
Date of Encounter: 10/16/16 Time of Encounter: 13:00 - Assessment and plan (1) Morbid obesity with BMI of 45.0-49.9, adult Current Visit: Yes Status: Acute Assessment and plan: Outpatient weight loss regimen. (2) Sepsis Current Visit: Yes Status: Acute Assessment and plan: Broad spectrum IV antibiotics. Follow-up blood cultures. Qualifiers: Sepsis type: sepsis due to unspecified organism Qualified Code(s): A41.9 - Sepsis, unspecified organism (3) Cellulitis Current Visit: Yes Status: Acute Assessment and plan: Continue IV vancomycin. Dosing by levels. Her trough level was slightly high at 20.1 yesterday, dose was adjusted. We will check trough level tomorrow. Monitor kidney function. Qualifiers: Site of cellulitis: extremity Site of cellulitis of extremity: lower extremity Laterality: left Qualified Code(s): L03.116 - Cellulitis of left lower limb (4) UTI (urinary tract infection) Current Visit: Yes Status: Acute Assessment and plan: Follow-up culture. Continue with Zosyn and vancomycin. Qualifiers: Urinary tract infection type: acute cystitis Hematuria presence: with hematuria Qualified Code(s): N30.01 - Acute cystitis with hematuria (5) Metabolic encephalopathy Current Visit: Yes Status: Acute Assessment and plan: Improved with treatment of sepsis. Avoid sedatives. He is at high risk for morbidity mortality and complications due to IV vancomycin which requires blood level monitoring for toxicity. - Subjective Interval history: Patient admitted for altered mental status and left lower extremity pain and redness. Reports that mental status is back to baseline. Left lower extremity pain and tenderness without but it ambulation has improved however he noticed increased redness and swelling. - Constitutional Vitals: Temp Pulse Resp BP Pulse Ox 98.0 F 84 16 147/84 98 10/16/16 18:29 10/16/16 18:29 10/16/16 18:29 10/16/16 18:29 10/16/16 18:29 General appearance: Present: A&O X 3 - Respiratory Respiratory exam: Present: CTAB. Absent: accessory muscle use, rales, rhonchi, wheezes - Cardiovascular Cardiovascular exam: Present: RRR, +S1, +S2. Absent: diastolic murmur, gallop, rubs, systolic murmur - GI/Abdominal GI/Abdominal exam: Present: normal bowel sounds, soft, no peritoneal signs. Absent: distended, tenderness - Extremities Exam Extremities exam: Present: pedal edema, warm, radial pulses palpable and symmetrical. Absent: calf tenderness, cyanotic - Neurological Exam Neurological exam: Present: CN II-XII intact, oriented X3, no focal deficits. Absent: pronater drift, facial droop, speech deficit - Skin Skin exam: Present: dry, erythema (Increasing redness of the left lower extremity ), intact Internal Medicine: Result - Labs CBC & Chem 7: 10/16/16 05:42 10/16/16 05:42 Labs: Short CBC 10/16/16 Range/Units 05:42 WBC 10.7 (4.3-11.1) K/mcL Hgb 12.0 L (12.9-16.9) g/dL Hct 35.3 L (37.5-50.1) % Plt Count 124 L (140-400) K/mcL Neutrophils # 8.9 (1.6-8.9) K/mcL BMP 10/16/16 05:42 Sodium 136 Potassium 3.6 Chloride 106 Carbon Dioxide 27 BUN 13 Creatinine 1.01 Glucose 107 H Calcium 9.3 - ABG Interpretation ABG results: PT/INR, D-dimer PT 20.4 Seconds (9.4-12.1) H 10/16/16 05:42 Consult Discharge Plan - Plan Referrals: Corine Clancy MD [Primary Care Provider] - 10/23/16 1:45 pm
[2016-10-17] MEDS: *HR* HYDROcodone/Acet 5/325 mg TABLET PO PRN (01:05)
[2016-10-17] MEDS: Vancomycin 1,250 MG in D5% in Water 250 ML IVPB SCH ×2 (01:10→13:16)
[2016-10-17 04:27] LABS: Basophils % 0.3 %; Eosinophils # 0.1 K/mcL (0.0-0.6); Eosinophils % 0.9 %; Hematocrit 35.8 % (37.5-50.1); Hemoglobin 11.8 g/dL (12.9-16.9); Immature Granulocytes % 0.8 % (0-4); Lymphocytes # 1.4 K/mcL (0.6-4.6); Lymphocytes % 15.2 %; Mean Corpuscular Hemoglobin 31.1 pg (28.0-33.3); Mean Corpuscular Volume 94.5 fL (83.0-100.0); Monocytes # 0.8 K/mcL (0.0-1.3); Monocytes % 9.2 %; Neutrophils # 6.6 K/mcL (1.6-8.9); Platelet Count 138 K/mcL (140-400); Red Blood Count 3.79 M/mcL (4.19-5.50); Red Cell Distribution Width 14.3 % (11.5-14.5); Segmented Neutrophils % 73.6 %
[2016-10-17 04:38] LABS: BUN/Creatinine Ratio 11 (6-26); Blood Urea Nitrogen 10 mg/dL (8-26); Carbon Dioxide 26 mEq/L (19-29); Chloride 107 mEq/L (98-109); Glucose 106 mg/dL (70-99); Osmolality,Calculated 283 (280-300); Sodium 137 mEq/L (136-145); eGFR For African Americans > 60 (> 60); eGFR For Non-African Americans > 60 (> 60)
[2016-10-17 04:48] LABS: INR 2.2
[2016-10-17] MEDS: Piperacillin/Tazobactam 3.375 GM in D5% in Water (Mini-Bag+) 100 ML IVPB SCH ×3 (06:31→23:39)
[2016-10-17] MEDS: 0.9 % Sodium Chloride 1,000 ML IVC SCH ×2 (06:32→16:27)
[2016-10-17] MEDS: Pantoprazole 40 MG VIAL IVP SCH (09:07)
[2016-10-17] MEDS: FLUoxetine HCl 10 MG CAPSULE PO SCH (09:07)
[2016-10-17] MEDS: *HR* Warfarin 7.5 MG TABLET PO SCH (18:45)
--- NOTE | 2016-10-17 20:02 | Internal Med Progress Note ---
Date of Encounter: 10/17/16 Time of Encounter: 10:00 - Assessment and plan (1) Morbid obesity with BMI of 45.0-49.9, adult Current Visit: Yes Status: Acute Assessment and plan: Outpatient weight loss regimen. (2) Sepsis Current Visit: Yes Status: Acute Assessment and plan: Broad spectrum IV antibiotics. Follow-up blood cultures. Qualifiers: Sepsis type: sepsis due to unspecified organism Qualified Code(s): A41.9 - Sepsis, unspecified organism (3) Cellulitis Current Visit: Yes Status: Acute Assessment and plan: Continue IV vancomycin. Dosing by levels. We will check trough level tomorrow. If there is no improvement with a good trough level I will consider switching to a different antibiotic. Monitor kidney function. Qualifiers: Site of cellulitis: extremity Site of cellulitis of extremity: lower extremity Laterality: left Qualified Code(s): L03.116 - Cellulitis of left lower limb (4) UTI (urinary tract infection) Current Visit: Yes Status: Acute Assessment and plan: Follow-up culture. Continue with Zosyn and vancomycin. Qualifiers: Urinary tract infection type: acute cystitis Hematuria presence: with hematuria Qualified Code(s): N30.01 - Acute cystitis with hematuria (5) Metabolic encephalopathy Current Visit: Yes Status: Acute Assessment and plan: Improved with treatment of sepsis. Avoid sedatives. He is at high risk for morbidity mortality and complications due to IV vancomycin which requires blood level monitoring for toxicity. - Subjective Interval history: Patient reports worsening redness and swelling in his left lower extremity, his mental status has remained at baseline and he reports some improved tenderness in the left foot with bearing weight. - Constitutional Vitals: Temp Pulse Resp BP Pulse Ox 98.3 F 96 12 125/68 96 10/17/16 19:01 10/17/16 19:01 10/17/16 19:01 10/17/16 19:01 10/17/16 19:01 General appearance: Present: A&O X 3 - Respiratory Respiratory exam: Present: CTAB. Absent: accessory muscle use, rales, rhonchi, wheezes - Cardiovascular Cardiovascular exam: Present: RRR, +S1, +S2. Absent: diastolic murmur, gallop, rubs, systolic murmur - GI/Abdominal GI/Abdominal exam: Present: normal bowel sounds, soft, no peritoneal signs. Absent: distended, tenderness - Extremities Exam Extremities exam: Present: pedal edema, warm, radial pulses palpable and symmetrical. Absent: calf tenderness, cyanotic - Neurological Exam Neurological exam: Present: CN II-XII intact, oriented X3, no focal deficits. Absent: pronater drift, facial droop, speech deficit - Skin Skin exam: Present: dry, erythema (Cellulitis of the left lower leg unchanged from yesterday,), intact Internal Medicine: Result - Labs CBC & Chem 7: 10/17/16 04:15 10/17/16 04:15 Labs: Short CBC 10/17/16 Range/Units 04:15 WBC 8.9 (4.3-11.1) K/mcL Hgb 11.8 L (12.9-16.9) g/dL Hct 35.8 L (37.5-50.1) % Plt Count 138 L (140-400) K/mcL Neutrophils # 6.6 (1.6-8.9) K/mcL BMP 10/17/16 04:15 Sodium 137 Potassium 4.0 Chloride 107 Carbon Dioxide 26 BUN 10 Creatinine 0.91 Glucose 106 H Calcium 9.0 - ABG Interpretation ABG results: PT/INR, D-dimer PT 24.0 Seconds (9.4-12.1) H 10/17/16 04:00 Consult Discharge Plan - Plan Referrals: Corine Clancy MD [Primary Care Provider] - 10/23/16 1:45 pm
[2016-10-18] MEDS: Vancomycin 1,250 MG in D5% in Water 250 ML IVPB SCH (00:50)
[2016-10-18 04:48] LABS: Basophils % 0.4 %; Eosinophils # 0.2 K/mcL (0.0-0.6); Eosinophils % 2.9 %; Hematocrit 36.2 % (37.5-50.1); Immature Granulocytes % 1.9 % (0-4); Lymphocytes # 1.5 K/mcL (0.6-4.6); Lymphocytes % 20.8 %; Mean Corpuscular HGB Conc 33.1 g/dL (31.6-35.5); Mean Corpuscular Hemoglobin 31.3 pg (28.0-33.3); Mean Corpuscular Volume 94.3 fL (83.0-100.0); Mean Platelet Volume 10.1 fL (9.4-12.4); Monocytes # 0.9 K/mcL (0.0-1.3); Monocytes % 12.4 %; Neutrophils # 4.5 K/mcL (1.6-8.9); Platelet Count 148 K/mcL (140-400); Red Blood Count 3.84 M/mcL (4.19-5.50); Red Cell Distribution Width 14.6 % (11.5-14.5); Segmented Neutrophils % 61.6 %
[2016-10-18 04:55] LABS: BUN/Creatinine Ratio 10 (6-26); Blood Urea Nitrogen 9 mg/dL (8-26); Calcium 9.1 mg/dL (8.6-10.8); Carbon Dioxide 25 mEq/L (19-29); Chloride 107 mEq/L (98-109); Glucose 94 mg/dL (70-99); Osmolality,Calculated 284 (280-300); Potassium 3.8 mEq/L (3.5-4.5); Sodium 138 mEq/L (136-145); eGFR For African Americans > 60 (> 60); eGFR For Non-African Americans > 60 (> 60)
[2016-10-18 05:01] LABS: INR 2.4; Prothrombin Time 26.7 Seconds (9.4-12.1)
[2016-10-18] MEDS: Piperacillin/Tazobactam 3.375 GM in D5% in Water (Mini-Bag+) 100 ML IVPB SCH (06:40)
[2016-10-18] MEDS ORDERED: Furosemide 40 MG/4 ML VIAL IVP ONE (08:50)
[2016-10-18] MEDS: FLUoxetine HCl 10 MG CAPSULE PO SCH (09:09)
[2016-10-18] MEDS ORDERED: Vancomycin 2,000 MG in D5% in Water 500 ML IVPB SCH (10:00)
[2016-10-18] MEDS: *HR* HYDROcodone/Acet 5/325 mg TABLET PO PRN ×2 (10:29→22:09)
[2016-10-18] MEDS: Furosemide 20 MG/2 ML VIAL IVP SCH (16:07)
[2016-10-18] MEDS: *HR* Warfarin 7.5 MG TABLET PO SCH (16:56)
--- NOTE | 2016-10-18 19:23 | Internal Med Progress Note ---
Date of Encounter: 10/18/16 Time of Encounter: 10:00 - Assessment and plan (1) Morbid obesity with BMI of 45.0-49.9, adult Current Visit: Yes Status: Acute Assessment and plan: Outpatient weight loss regimen. (2) Sepsis Current Visit: Yes Status: Acute Assessment and plan: His white blood cell count is trending down. Blood cultures are negative. Patient has been afebrile. Mental status suspect baseline. Overall generally improving. Broad spectrum IV antibiotics. Follow-up blood cultures. Qualifiers: Sepsis type: sepsis due to unspecified organism Qualified Code(s): A41.9 - Sepsis, unspecified organism (3) Cellulitis Current Visit: Yes Status: Acute Assessment and plan: 10/18/2016: Patient's lower extremity cellulitis appears to be worsening with blister formation. I have incised and debrided the blister and sent a wound culture. I am concerned that infection is possibly caused by Staphylococcus aureus aureus with a high SNEHA for vancomycin. I noticed that dose was decreased from 2 g to 1250 mg and trough is 13. I will aim for a trough of 20- 25 and therefore I will increase the dose back to 2000 mg every 12 hours. I will monitor vancomycin levels closely and carefully. Monitor kidney function closely. I will switch Zosyn to Augmentin since patient has a good oral intake. 10/17/2016: Continue IV vancomycin. Dosing by levels. We will check trough level tomorrow. If there is no improvement with a good trough level I will consider switching to a different antibiotic. Monitor kidney function. Qualifiers: Site of cellulitis: extremity Site of cellulitis of extremity: lower extremity Laterality: left Qualified Code(s): L03.116 - Cellulitis of left lower limb (4) UTI (urinary tract infection) Current Visit: Yes Status: Acute Assessment and plan: Follow-up culture. Continue with Zosyn and vancomycin. Qualifiers: Urinary tract infection type: acute cystitis Hematuria presence: with hematuria Qualified Code(s): N30.01 - Acute cystitis with hematuria (5) Metabolic encephalopathy Current Visit: Yes Status: Acute Assessment and plan: Improved with treatment of sepsis. Avoid sedatives. He is at high risk for morbidity mortality and complications due to IV vancomycin which requires blood level monitoring for toxicity. - Subjective Interval history: 10/18/2016: Patient's left lower extremity redness and swelling has continued to worsen since yesterday. He does report less pain and tenderness in the foot and leg. He denies associated fevers and chills. 10/17/2016: Patient reports worsening redness and swelling in his left lower extremity, his mental status has remained at baseline and he reports some improved tenderness in the left foot with bearing weight. - Constitutional Vitals: Temp Pulse Resp BP Pulse Ox 98.0 F 83 16 143/79 96 10/18/16 18:43 10/18/16 18:43 10/18/16 18:43 10/18/16 18:43 10/18/16 18:43 General appearance: Present: A&O X 3 - Eye Eye exam: Present: PERRL, conjuntiva pink, sclera anicteric Pupils: Present: PERRL - Respiratory Respiratory exam: Present: CTAB. Absent: accessory muscle use, rales, rhonchi, wheezes - Cardiovascular Cardiovascular exam: Present: RRR, +S1, +S2. Absent: diastolic murmur, gallop, rubs, systolic murmur - GI/Abdominal GI/Abdominal exam: Present: normal bowel sounds, soft, no peritoneal signs. Absent: distended, tenderness - Extremities Exam Extremities exam: Present: pedal edema, warm, radial pulses palpable and symmetrical. Absent: calf tenderness, cyanotic - Neurological Exam Neurological exam: Present: CN II-XII intact, oriented X3, no focal deficits. Absent: pronater drift, facial droop, speech deficit - Skin Additional comments: Left lower leg distal tibial area erythema warm and formation of a 5 cm in diameter fluid-filled blister. There are patchy area of erythema extending the upper calf and thigh. Internal Medicine: Result - Labs CBC & Chem 7: 10/18/16 04:30 10/18/16 04:30 Labs: Short CBC 10/18/16 Range/Units 04:30 WBC 7.3 (4.3-11.1) K/mcL Hgb 12.0 L (12.9-16.9) g/dL Hct 36.2 L (37.5-50.1) % Plt Count 148 (140-400) K/mcL Neutrophils # 4.5 (1.6-8.9) K/mcL BMP 10/18/16 04:30 Sodium 138 Potassium 3.8 Chloride 107 Carbon Dioxide 25 BUN 9 Creatinine 0.90 Glucose 94 Calcium 9.1 - ABG Interpretation ABG results: PT/INR, D-dimer PT 26.7 Seconds (9.4-12.1) H 10/18/16 04:30 Consult Discharge Plan - Plan Referrals: Corine Clancy MD [Primary Care Provider] - 10/23/16 1:45 pm
[2016-10-18] MEDS: Vancomycin 2,000 MG in D5% in Water 500 ML IVPB SCH (22:06)
[2016-10-18] MEDS: 0.9 % Sodium Chloride 1,000 ML IVC SCH (23:04)
[2016-10-19] MEDS ORDERED: Vancomycin 1,250 MG in D5% in Water 250 ML IVPB SCH (01:00)
[2016-10-19 05:04] LABS: Basophils # 0.1 K/mcL (0.0-0.2); Basophils % 0.8 %; Eosinophils # 0.2 K/mcL (0.0-0.6); Eosinophils % 2.9 %; Hematocrit 37.7 % (37.5-50.1); Hemoglobin 12.4 g/dL (12.9-16.9); Immature Granulocytes % 4.2 % (0-4); Lymphocytes # 1.5 K/mcL (0.6-4.6); Lymphocytes % 19.8 %; Mean Corpuscular HGB Conc 32.9 g/dL (31.6-35.5); Mean Corpuscular Hemoglobin 30.8 pg (28.0-33.3); Mean Corpuscular Volume 93.5 fL (83.0-100.0); Mean Platelet Volume 9.4 fL (9.4-12.4); Neutrophils # 4.5 K/mcL (1.6-8.9); Platelet Count 169 K/mcL (140-400); Red Blood Count 4.03 M/mcL (4.19-5.50); Red Cell Distribution Width 14.2 % (11.5-14.5); Segmented Neutrophils % 59.3 %
[2016-10-19 05:09] LABS: INR 3.1; Prothrombin Time 33.8 Seconds (9.4-12.1)
[2016-10-19 05:15] LABS: BUN/Creatinine Ratio 12 (6-26); Blood Urea Nitrogen 11 mg/dL (8-26); Calcium 9.3 mg/dL (8.6-10.8); Carbon Dioxide 29 mEq/L (19-29); Chloride 103 mEq/L (98-109); Glucose 102 mg/dL (70-99); Osmolality,Calculated 284 (280-300); Potassium 3.7 mEq/L (3.5-4.5); Sodium 137 mEq/L (136-145); eGFR For African Americans > 60 (> 60); eGFR For Non-African Americans > 60 (> 60)
[2016-10-19] MEDS: Acetaminophen 325 MG TABLET PO PRN (06:45)
[2016-10-19] MEDS: Vancomycin 2,000 MG in D5% in Water 500 ML IVPB SCH ×2 (08:30→21:59)
[2016-10-19] MEDS: FLUoxetine HCl 10 MG CAPSULE PO SCH (08:31)
[2016-10-19 08:54] LABS: C-Reactive Protein 64 mg/L (Less than 5)
[2016-10-19] MEDS ORDERED: Furosemide 40 MG/4 ML VIAL IVP SCH (09:00)
[2016-10-19] MEDS: Furosemide 20 MG/2 ML VIAL IVP SCH (17:15)
--- NOTE | 2016-10-19 19:19 | Internal Med Progress Note ---
Date of Encounter: 10/19/16 Time of Encounter: 09:17 - Assessment and plan (1) Morbid obesity with BMI of 45.0-49.9, adult Current Visit: Yes Status: Acute Assessment and plan: Outpatient weight loss regimen. (2) Sepsis Current Visit: Yes Status: Acute Assessment and plan: His white blood cell count is trending down. Blood cultures are negative. Patient has been afebrile. Mental status suspect baseline. Overall generally improving. Broad spectrum IV antibiotics. Follow-up blood cultures. Qualifiers: Sepsis type: sepsis due to unspecified organism Qualified Code(s): A41.9 - Sepsis, unspecified organism (3) Cellulitis Current Visit: Yes Status: Acute Assessment and plan: 10/19/2016: Lower extremity appears to be slightly better than unchanged. I will give him 24 more hours on 2 g of IV vancomycin before considering switching to daptomycin or linezolid. Continue with Augmentin for coverage of MSSA and sensitive gram-negative rods. The only thing that I do not cover with this combination as ESBL however this would be extremely rare to cause cellulitis and this patient. I have consulted ID over the phone by the ID service is not available over the weekend to see the patient. Vanco trough goal 20-25. A trough level of 27 this morning is acceptable as long as kidney function appears to be improving. I will recheck a level tomorrow. He is at high risk for morbidity mortality and complications due to IV vancomycin which requires close blood level monitoring for toxicity. 10/18/2016 : Patient's lower extremity cellulitis appears to be worsening with blister formation. I have incised and debrided the blister and sent a wound culture. I am concerned that infection is possibly caused by Staphylococcus aureus aureus with a high SNEHA for vancomycin. I noticed that dose was decreased from 2 g to 1250 mg and trough is 13. I will aim for a trough of 20-25 and therefore I will increase the dose back to 2000 mg every 12 hours. I will monitor vancomycin levels closely and carefully. Monitor kidney function closely. I will switch Zosyn to Augmentin since patient has a good oral intake. 10/17/2016: Continue IV vancomycin. Dosing by levels. We will check trough level tomorrow. If there is no improvement with a good trough level I will consider switching to a different antibiotic. Monitor kidney function. Qualifiers: Site of cellulitis: extremity Site of cellulitis of extremity: lower extremity Laterality: left Qualified Code(s): L03.116 - Cellulitis of left lower limb (4) UTI (urinary tract infection) Current Visit: Yes Status: Acute Assessment and plan: Follow-up culture. Continue with Zosyn and vancomycin. Qualifiers: Urinary tract infection type: acute cystitis Hematuria presence: with hematuria Qualified Code(s): N30.01 - Acute cystitis with hematuria (5) Metabolic encephalopathy Current Visit: Yes Status: Acute Assessment and plan: Improved with treatment of sepsis. Avoid sedatives. He is at high risk for morbidity mortality and complications due to IV vancomycin which requires blood level monitoring for toxicity. - Subjective Interval history: 10/19/2016: Patient's left lower extremity redness and swelling appears unchanged from yesterday. He says that the foot was less tender however this morning and has become slightly more painful. He reports mild to 0 pain at rest in moderate with bearing weight. Denies any associated fevers and chills. 10/18/2016: Patient's left lower extremity redness and swelling has continued to worsen since yesterday. He does report less pain and tenderness in the foot and leg. He denies associated fevers and chills. 10/17/2016: Patient reports worsening redness and swelling in his left lower extremity, his mental status has remained at baseline and he reports some improved tenderness in the left foot with bearing weight. - Constitutional Vitals: Temp Pulse Resp BP Pulse Ox 98.6 F 99 18 132/81 96 10/19/16 18:38 10/19/16 18:38 10/19/16 18:38 10/19/16 18:38 10/19/16 18:38 General appearance: Present: A&O X 3 - Respiratory Respiratory exam: Present: CTAB. Absent: accessory muscle use, rales, rhonchi, wheezes - Cardiovascular Cardiovascular exam: Present: RRR, +S1, +S2. Absent: diastolic murmur, gallop, rubs, systolic murmur - GI/Abdominal GI/Abdominal exam: Present: normal bowel sounds, soft, no peritoneal signs. Absent: distended, tenderness - Extremities Exam Extremities exam: Present: pedal edema (Gross 3+ left lower extremity pitting edema associated with cellulitis), warm, radial pulses palpable and symmetrical. Absent: calf tenderness, cyanotic - Neurological Exam Neurological exam: Present: CN II-XII intact, oriented X3, no focal deficits. Absent: pronater drift, facial droop, speech deficit - Skin Skin exam: Present: dry, erythema (Left lower extremity cellulitis with one blister on the distal calf,), intact Internal Medicine: Result - Labs CBC & Chem 7: 10/19/16 05:00 10/19/16 05:00 Labs: Short CBC 10/19/16 Range/Units 05:00 WBC 7.6 (4.3-11.1) K/mcL Hgb 12.4 L (12.9-16.9) g/dL Hct 37.7 (37.5-50.1) % Plt Count 169 (140-400) K/mcL Neutrophils # 4.5 (1.6-8.9) K/mcL BMP 10/19/16 05:00 Sodium 137 Potassium 3.7 Chloride 103 Carbon Dioxide 29 BUN 11 Creatinine 0.92 Glucose 102 H Calcium 9.3 - ABG Interpretation ABG results: PT/INR, D-dimer PT 33.8 Seconds (9.4-12.1) H 10/19/16 05:00 - Impressions Impressions Lower Extremity CT 10/19/16 08:35 IMPRESSION: Severe diffuse subcutaneous edema along with diffuse skin thickening to the visualized lower extremity concerning for cellulitis. No focal fluid collections to suggest abscess. No soft tissue gas. Superimposed dermal blistering to the posteromedial mid to distal leg along with questionable shallow skin defect to the posteromedial mid leg in region of one of the blisters. No acute bony abnormalities. No CT evidence for osteomyelitis. Tricompartmental degenerative changes to the knee along with small knee joint effusion. D/ /19/2016 11:22:26 Yohannes Roper MD / Danyell Hawthorne Interpreting Provider: Yohannes Roper MD Consult Discharge Plan - Plan Referrals: Corine Clancy MD [Primary Care Provider] - 10/23/16 1:45 pm
[2016-10-20 04:41] LABS: Basophils # 0.1 K/mcL (0.0-0.2); Basophils % 0.6 %; Eosinophils # 0.2 K/mcL (0.0-0.6); Eosinophils % 2.4 %; Hematocrit 38.1 % (37.5-50.1); Hemoglobin 12.5 g/dL (12.9-16.9); Immature Granulocytes % 3.2 % (0-4); Lymphocytes # 1.7 K/mcL (0.6-4.6); Lymphocytes % 20.9 %; Mean Corpuscular HGB Conc 32.8 g/dL (31.6-35.5); Mean Corpuscular Hemoglobin 30.6 pg (28.0-33.3); Mean Corpuscular Volume 93.2 fL (83.0-100.0); Mean Platelet Volume 9.5 fL (9.4-12.4); Monocytes # 0.9 K/mcL (0.0-1.3); Monocytes % 11.2 %; Platelet Count 204 K/mcL (140-400); Red Blood Count 4.09 M/mcL (4.19-5.50); Red Cell Distribution Width 13.8 % (11.5-14.5); Segmented Neutrophils % 61.7 %
[2016-10-20 04:46] LABS: INR 2.7; Prothrombin Time 29.3 Seconds (9.4-12.1)
[2016-10-20 04:59] LABS: BUN/Creatinine Ratio 12 (6-26); Blood Urea Nitrogen 11 mg/dL (8-26); Calcium 9.6 mg/dL (8.6-10.8); Carbon Dioxide 29 mEq/L (19-29); Chloride 101 mEq/L (98-109); Glucose 106 mg/dL (70-99); Osmolality,Calculated 284 (280-300); Potassium 3.4 mEq/L (3.5-4.5); Sodium 137 mEq/L (136-145); eGFR For African Americans > 60 (> 60); eGFR For Non-African Americans > 60 (> 60)
--- NOTE | 2016-10-20 08:01 | Internal Med Progress Note ---
Date of Encounter: 10/20/16 Time of Encounter: 07:50 - Assessment and plan (1) Morbid obesity with BMI of 45.0-49.9, adult Current Visit: Yes Status: Acute Assessment and plan: Outpatient weight loss regimen. (2) Sepsis Current Visit: Yes Status: Acute Assessment and plan: His white blood cell count is trending down. Blood cultures are negative. Patient has been afebrile. Mental status suspect baseline. Overall generally improving. Broad spectrum IV antibiotics. Follow-up blood cultures. Qualifiers: Sepsis type: sepsis due to unspecified organism Qualified Code(s): A41.9 - Sepsis, unspecified organism (3) Cellulitis Current Visit: Yes Status: Acute Assessment and plan: 10/20/2016: Left lower extremity cellulitis appears to be improved, color is darker red. The area of erythema which was outlined on the scan yesterday appears to be slightly shrinking. The blisters on the back of the calf appeared to be drying up. Additionally systemic signs of infection have subsided, the patient has been afebrile, white blood cell count is within normal limits, heart rate is normal. I will continue with vancomycin at 2 g IV every 12 hours 2 attain a trough level between 20 and 25. A level last night was 22 which is within goal. Continue to monitor clinically. He remains at high risk for morbidity, mortality and complications due to IV vancomycin which requires intensive blood level monitoring for toxicity. 10/19/2016: Lower extremity appears to be slightly better than unchanged. I will give him 24 more hours on 2 g of IV vancomycin before considering switching to daptomycin or linezolid. Continue with Augmentin for coverage of MSSA and sensitive gram-negative rods. The only thing that I do not cover with this combination as ESBL however this would be extremely rare to cause cellulitis and this patient. I have consulted ID over the phone by the ID service is not available over the weekend to see the patient. Vanco trough goal 20-25. A trough level of 27 this morning is acceptable as long as kidney function appears to be improving. I will recheck a level tomorrow. He is at high risk for morbidity mortality and complications due to IV vancomycin which requires close blood level monitoring for toxicity. 10/18/2016 : Patient's lower extremity cellulitis appears to be worsening with blister formation. I have incised and debrided the blister and sent a wound culture. I am concerned that infection is possibly caused by Staphylococcus aureus aureus with a high SNEHA for vancomycin. I noticed that dose was decreased from 2 g to 1250 mg and trough is 13. I will aim for a trough of 20-25 and therefore I will increase the dose back to 2000 mg every 12 hours. I will monitor vancomycin levels closely and carefully. Monitor kidney function closely. I will switch Zosyn to Augmentin since patient has a good oral intake. 10/17/2016: Continue IV vancomycin. Dosing by levels. We will check trough level tomorrow. If there is no improvement with a good trough level I will consider switching to a different antibiotic. Monitor kidney function. Qualifiers: Site of cellulitis: extremity Site of cellulitis of extremity: lower extremity Laterality: left Qualified Code(s): L03.116 - Cellulitis of left lower limb (4) UTI (urinary tract infection) Current Visit: Yes Status: Acute Assessment and plan: Follow-up culture. Continue with Zosyn and vancomycin. Qualifiers: Urinary tract infection type: acute cystitis Hematuria presence: with hematuria Qualified Code(s): N30.01 - Acute cystitis with hematuria (5) Metabolic encephalopathy Current Visit: Yes Status: Acute Assessment and plan: Improved with treatment of sepsis. Avoid sedatives. He is at high risk for morbidity mortality and complications due to IV vancomycin which requires blood level monitoring for toxicity. (6) Hypokalemia Current Visit: Yes Status: Acute Assessment and plan: Likely secondary to Lasix. Replete with oral potassium. Check magnesium level in the morning. - Subjective Interval history: 10/20/2016: Patient reports improvement in his left foot pain, left calf pain over the last 24 hours. Denies associated fevers and chills. Swelling has also gone down. Denies constipation. Has regular bowel movements. Continues to have good urine output. Denies chest pain shortness S of breath 10/19/2016: Patient's left lower extremity redness and swelling appears unchanged from yesterday. He says that the foot was less tender however this morning and has become slightly more painful. He reports mild to 0 pain at rest in moderate with bearing weight. Denies any associated fevers and chills. 10/18/2016: Patient's left lower extremity redness and swelling has continued to worsen since yesterday. He does report less pain and tenderness in the foot and leg. He denies associated fevers and chills. 10/17/2016: Patient reports worsening redness and swelling in his left lower extremity, his mental status has remained at baseline and he reports some improved tenderness in the left foot with bearing weight. - Constitutional Vitals: Temp Pulse Resp BP Pulse Ox 98.4 F 83 16 139/80 93 10/20/16 07:10/20/16 07:10/20/16 07:10/20/16 07:10/20/16 07:21 General appearance: Present: A&O X 3 - Cardiovascular Cardiovascular exam: Present: RRR, +S1, +S2. Absent: diastolic murmur, gallop, rubs, systolic murmur - GI/Abdominal GI/Abdominal exam: Present: normal bowel sounds, soft, no peritoneal signs. Absent: distended, tenderness - Extremities Exam Extremities exam: Present: pedal edema, warm, radial pulses palpable and symmetrical. Absent: calf tenderness, cyanotic - Neurological Exam Neurological exam: Present: CN II-XII intact, oriented X3, no focal deficits. Absent: pronater drift, facial droop, speech deficit - Skin Skin exam: Present: erythema (Left calf cellulitis, improved) Internal Medicine: Result - Labs CBC & Chem 7: 10/20/16 04:20 10/20/16 04:20 Labs: Short CBC 10/20/16 Range/Units 04:20 WBC 8.0 (4.3-11.1) K/mcL Hgb 12.5 L (12.9-16.9) g/dL Hct 38.1 (37.5-50.1) % Plt Count 204 (140-400) K/mcL Neutrophils # 5.0 (1.6-8.9) K/mcL BMP 10/19/16 10/20/16 05:00 04:20 Sodium 137 137 Potassium 3.7 3.4 L Chloride 103 101 Carbon Dioxide 29 29 BUN 11 11 Creatinine 0.92 0.94 Glucose 102 H 106 H Calcium 9.3 9.6 - ABG Interpretation ABG results: PT/INR, D-dimer PT 29.3 Seconds (9.4-12.1) H 10/20/16 04:20 - Impressions Impressions Lower Extremity CT 10/19/16 08:35 IMPRESSION: Severe diffuse subcutaneous edema along with diffuse skin thickening to the visualized lower extremity concerning for cellulitis. No focal fluid collections to suggest abscess. No soft tissue gas. Superimposed dermal blistering to the posteromedial mid to distal leg along with questionable shallow skin defect to the posteromedial mid leg in region of one of the blisters. No acute bony abnormalities. No CT evidence for osteomyelitis. Tricompartmental degenerative changes to the knee along with small knee joint effusion. D/ /19/2016 11:22:26 Yohannes Roper MD / Danyell Hawthorne Interpreting Provider: Yohannes Roper MD Consult Discharge Plan - Plan Referrals: Corine Clancy MD [Primary Care Provider] - 10/23/16 1:45 pm
[2016-10-20] MEDS: Furosemide 20 MG/2 ML VIAL IVP SCH (08:26)
[2016-10-20] MEDS: FLUoxetine HCl 10 MG CAPSULE PO SCH (08:26)
[2016-10-20] MEDS: Vancomycin 2,000 MG in D5% in Water 500 ML IVPB SCH ×2 (10:41→20:22)
[2016-10-20] MEDS: *HR* HYDROcodone/Acet 5/325 mg TABLET PO PRN (13:46)
[2016-10-20] MEDS ORDERED: *HR* Warfarin 4 MG TABLET PO ONE (18:00)
[2016-10-21 04:48] LABS: Basophils # 0.1 K/mcL (0.0-0.2); Basophils % 0.7 %; Eosinophils # 0.2 K/mcL (0.0-0.6); Eosinophils % 2.5 %; Hematocrit 39.9 % (37.5-50.1); Immature Granulocytes % 2.6 % (0-4); Lymphocytes # 1.6 K/mcL (0.6-4.6); Lymphocytes % 19.5 %; Mean Corpuscular HGB Conc 32.6 g/dL (31.6-35.5); Mean Corpuscular Hemoglobin 30.7 pg (28.0-33.3); Mean Corpuscular Volume 94.1 fL (83.0-100.0); Mean Platelet Volume 9.3 fL (9.4-12.4); Monocytes # 0.8 K/mcL (0.0-1.3); Monocytes % 9.4 %; Neutrophils # 5.4 K/mcL (1.6-8.9); Platelet Count 240 K/mcL (140-400); Red Blood Count 4.24 M/mcL (4.19-5.50); Red Cell Distribution Width 13.9 % (11.5-14.5); Segmented Neutrophils % 65.3 %
[2016-10-21 04:54] LABS: INR 2.1; Prothrombin Time 22.6 Seconds (9.4-12.1)
[2016-10-21 05:12] LABS: BUN/Creatinine Ratio 12 (6-26); Blood Urea Nitrogen 12 mg/dL (8-26); Calcium 9.8 mg/dL (8.6-10.8); Carbon Dioxide 31 mEq/L (19-29); Chloride 102 mEq/L (98-109); Glucose 104 mg/dL (70-99); Osmolality,Calculated 290 (280-300); Potassium 3.7 mEq/L (3.5-4.5); Sodium 140 mEq/L (136-145); eGFR For African Americans > 60 (> 60); eGFR For Non-African Americans > 60 (> 60)
[2016-10-21] MEDS: Furosemide 20 MG/2 ML VIAL IVP SCH ×2 (08:08→08:28)
[2016-10-21] MEDS: FLUoxetine HCl 10 MG CAPSULE PO SCH (08:09)
[2016-10-21] MEDS: *HR* HYDROcodone/Acet 5/325 mg TABLET PO PRN ×2 (08:09→20:38)
[2016-10-21] MEDS ORDERED: Vancomycin 1,750 MG in D5% in Water 500 ML IVPB SCH (12:00)
--- NOTE | 2016-10-21 15:36 | Internal Med Progress Note ---
Date of Encounter: 10/21/16 Time of Encounter: 15:34 - Assessment and plan (1) Morbid obesity with BMI of 45.0-49.9, adult Current Visit: Yes Status: Acute Assessment and plan: Outpatient weight loss regimen. (2) Sepsis Current Visit: Yes Status: Acute Assessment and plan: 10/21/2016: This has resolved. He had remained non-tachycardic, white count is normal and he has been afebrile. His white blood cell count is trending down. Blood cultures are negative. Patient has been afebrile. Mental status suspect baseline. Overall generally improving. Broad spectrum IV antibiotics. Follow-up blood cultures. Qualifiers: Sepsis type: sepsis due to unspecified organism Qualified Code(s): A41.9 - Sepsis, unspecified organism (3) Cellulitis Current Visit: Yes Status: Acute Assessment and plan: 10/21/2016: Left lower extremity continues to improve. Vancomycin trough levels are between 20 and 25. I am concerned of very slow improvement rate and high vancomycin levels needed to make any headway. Due to the poor clinical response to vancomycin I will switch to daptomycin. I will consult ID. 10/20/2016: Left lower extremity cellulitis appears to be improved, color is darker red. The area of erythema which was outlined on the scan yesterday appears to be slightly shrinking. The blisters on the back of the calf appeared to be drying up. Additionally systemic signs of infection have subsided, the patient has been afebrile, white blood cell count is within normal limits, heart rate is normal. I will continue with vancomycin at 2 g IV every 12 hours 2 attain a trough level between 20 and 25. A level last night was 22 which is within goal. Continue to monitor clinically. 10/19/2016: Lower extremity appears to be slightly better than unchanged. I will give him 24 more hours on 2 g of IV vancomycin before considering switching to daptomycin or linezolid. Continue with Augmentin for coverage of MSSA and sensitive gram-negative rods. The only thing that I do not cover with this combination as ESBL however this would be extremely rare to cause cellulitis and this patient. I have consulted ID over the phone by the ID service is not available over the weekend to see the patient. Vanco trough goal 20-25. A trough level of 27 this morning is acceptable as long as kidney function appears to be improving. I will recheck a level tomorrow. He is at high risk for morbidity mortality and complications due to IV vancomycin which requires close blood level monitoring for toxicity. 10/18/2016 : Patient's lower extremity cellulitis appears to be worsening with blister formation. I have incised and debrided the blister and sent a wound culture. I am concerned that infection is possibly caused by Staphylococcus aureus aureus with a high SNEHA for vancomycin. I noticed that dose was decreased from 2 g to 1250 mg and trough is 13. I will aim for a trough of 20-25 and therefore I will increase the dose back to 2000 mg every 12 hours. I will monitor vancomycin levels closely and carefully. Monitor kidney function closely. I will switch Zosyn to Augmentin since patient has a good oral intake. 10/17/2016: Continue IV vancomycin. Dosing by levels. We will check trough level tomorrow. If there is no improvement with a good trough level I will consider switching to a different antibiotic. Monitor kidney function. Qualifiers: Site of cellulitis: extremity Site of cellulitis of extremity: lower extremity Laterality: left Qualified Code(s): L03.116 - Cellulitis of left lower limb (4) UTI (urinary tract infection) Current Visit: Yes Status: Acute Assessment and plan: This has resolved. Patient is asymptomatic. Follow-up culture was negative. Received treatment with Zosyn and vancomycin. Qualifiers: Urinary tract infection type: acute cystitis Hematuria presence: with hematuria Qualified Code(s): N30.01 - Acute cystitis with hematuria (5) Metabolic encephalopathy Current Visit: Yes Status: Acute Assessment and plan: Improved with treatment of sepsis. Avoid sedatives. He is at high risk for morbidity mortality and complications due to IV vancomycin which requires blood level monitoring for toxicity. (6) Hypokalemia Current Visit: Yes Status: Acute Assessment and plan: Likely secondary to Lasix. Replete with oral potassium. Check magnesium level in the morning. - Subjective Interval history: 10/21/2016: Patient reports marginal improvement in lower extremity swelling, pain and tenderness is very mild if at all. Denies any associated fevers or chills. 10/20/2016: Patient reports improvement in his left foot pain, left calf pain over the last 24 hours. Denies associated fevers and chills. Swelling has also gone down. Denies constipation. Has regular bowel movements. Continues to have good urine output. Denies chest pain shortness S of breath 10/19/2016: Patient's left lower extremity redness and swelling appears unchanged from yesterday. He says that the foot was less tender however this morning and has become slightly more painful. He reports mild to 0 pain at rest in moderate with bearing weight. Denies any associated fevers and chills. 10/18/2016: Patient's left lower extremity redness and swelling has continued to worsen since yesterday. He does report less pain and tenderness in the foot and leg. He denies associated fevers and chills. 10/17/2016: Patient reports worsening redness and swelling in his left lower extremity, his mental status has remained at baseline and he reports some improved tenderness in the left foot with bearing weight. - Constitutional Vitals: Temp Pulse Resp BP Pulse Ox 98.4 F 77 15 153/78 96 10/21/16 15:08 10/21/16 15:08 10/21/16 15:08 10/21/16 15:08 10/21/16 15:08 General appearance: Present: A&O X 3 - Neck Neck exam general surgery: Present: supple, trachea midline. Absent: lymphadenopathy - Respiratory Respiratory exam: Present: CTAB. Absent: accessory muscle use, rales, rhonchi, wheezes - Cardiovascular Cardiovascular exam: Present: RRR, +S1, +S2. Absent: diastolic murmur, gallop, rubs, systolic murmur - GI/Abdominal GI/Abdominal exam: Present: normal bowel sounds, soft, no peritoneal signs. Absent: distended, tenderness - Skin Additional comments: Left lower extremity cellulitis centered around the distal carrion marginally improved from yesterday. Erythema appears to be slightly darker and the skin is less warm to touch. There is very mild tenderness to palpation. There is several blisters on the posterior aspect of the calf. Internal Medicine: Result - Labs CBC & Chem 7: 10/21/16 03:51 10/21/16 03:51 Labs: Short CBC 10/21/16 Range/Units 03:51 WBC 8.3 (4.3-11.1) K/mcL Hgb 13.0 (12.9-16.9) g/dL Hct 39.9 (37.5-50.1) % Plt Count 240 (140-400) K/mcL Neutrophils # 5.4 (1.6-8.9) K/mcL BMP 10/21/16 03:51 Sodium 140 Potassium 3.7 Chloride 102 Carbon Dioxide 31 H BUN 12 Creatinine 1.01 Glucose 104 H Calcium 9.8 - ABG Interpretation ABG results: PT/INR, D-dimer PT 22.6 Seconds (9.4-12.1) H 10/21/16 03:51 Consult Discharge Plan - Plan Referrals: Corine Clancy MD [Primary Care Provider] -
[2016-10-21] MEDS ORDERED: DAPTOmycin 650 MG in 0.9 % Sodium Chloride 100 ML IVPB SCH (16:00)
--- NOTE | 2016-10-21 16:34 | Infectious Disease Consult ---
Date of Encounter: 10/21/16 Time of Encounter: 16:31 Assessment and Plan (1) Sepsis Status: Acute Assessment and plan: The patient had two SIRS criteria on admission with KANDIS, lactic acidosis, and encephalopathy. Likely secondary to LLE cellulitis. Improved. WBC count has normalized. Tachycardia, KANDIS, lactic acidosis, and encephalopathy have resolved. Blood cultures drawn 10/13/16 are negative x 2 sets. Qualifiers: Sepsis type: sepsis due to unspecified organism Qualified Code(s): A41.9 - Sepsis, unspecified organism (2) Cellulitis Status: Acute Assessment and plan: Location: LLE. Causative organism unclear. Non-purulent. Improved per patient report. CT LLE shows no abscess or bony changes. Etiology likely multifactorial: tinea pedis + venous insufficiency. Delayed response likely secondary to poor tissue penetration of medication. Currently, patient on Daptomycin and Augmentin. Discontinue Daptomycin. Re-start Vancomycin. Continue Augmentin. If patient continues to improve clinically, will likely transition to oral antibiotics on discharge. Duration of treatment depends on the clinical picture. Consider wound care consult. Qualifiers: Site of cellulitis: extremity Site of cellulitis of extremity: lower extremity Laterality: left Qualified Code(s): L03.116 - Cellulitis of left lower limb (3) Acute kidney injury Status: Resolved Assessment and plan: Likely secondary to sepsis. Resolved. (4) Tinea pedis Status: Acute Assessment and plan: Start Lotrimin BID - apply to bilateral feet. Discussed the importance of good foot hygiene with the patient. Qualifiers: Laterality: bilateral Qualified Code(s): B35.3 - Tinea pedis (5) Lactic acidosis Status: Resolved Assessment and plan: Likely secondary to sepsis. Resolved. (6) Metabolic encephalopathy Status: Resolved Assessment and plan: Likely secondary to sepsis. Resolved. (7) Hypokalemia Status: Acute (8) Morbid obesity with BMI of 45.0-49.9, adult Status: Acute Infectious Disease HPI - Data of Consult Patient: new to practice Consult date: 10/21/16 Requesting Physician: Wilmer Wooten MD Primary Care Provider: Corine Clancy - Consult Narrative Reason for consult: LLE Cellulitis History of present illness: Mr. Villegas is a 66 year old male has medical history of recurrent cellulitis, DVT , GERD, hypertension, and morbid obesity. The patient was imaged the hospital October 13 for altered mental status and sepsis. We are consulted October 21 for further recommendations regarding left lower extremity cellulitis. The patient's a 66-year-old male with past medical history as stated above. The patient states that on the day of admission he began to experience altered mental status, weakness, and some left lower extremity swelling. He states this is happening before and it was because of cellulitis of his lower extremity. Upon arrival to ER, the patient was afebrile but he was tachycardic. He had leukocytosis with neutrophilic predominance. He also had an acute kidney injury and lactic acidosis. Chest x-ray was negative as well as a CT of the head that was negative. Blood cultures were obtained 2 sets. The patient was started on IV antibiotics and admitted to the hospital for further evaluation. Since admission, the patient has clinically improved. Leukocytosis, lactic acidosis, and acute kidney injury have resolved. His left lower extremity became red and swollen and painful and warm to the touch about 48 hours after admission and was red way up to his hip. Over the course the past 48 hours the redness and swelling and pain has improved. The patient did develop a serous blister to the posterior calf that was debrided by the hospitalist team and a wound culture was obtained and was negative. A CT showed severe diffuse subcutaneous edema with skin thickening and a small knee effusion. Venous dopplerwas negative for DVT. The patient was started on Vanco and Zosyn on admission and has since been switched to daptomycin and oral Augmentin by the primary team. We've been asked to evaluate and make further recommendations. During my exam today, the patient states overall he feels okay. He denies any fevers or chills or rigors at this time, but did report chills and rigors prior to admission. He denies any headache or neck pain. He denies any congestion, earache, or sore throat. He denies any chest pain, shortness of breath, or cough. He denies any nausea, vomiting, diarrhea, or constipation. He denies any abdominal pain or appetite changes. He denies any urinary complaints. He states he does have chronic back pain which is at his baseline. He states the pain in his left lower extremities improved as well as the swelling and redness. He denies any recent trauma to the leg. He denies any oral thrush. CC: Wilmer Wooten MD Past Med Surg Social Fam HX - Past Medical History Attestation: Yes The following information was validated with the patient. Source: patient, old records reviewed, nursing notes reviewed Medical history: DVT, GERD, hypertension, other (Recurrent LE cellulitis) Psychiatric history: depression - Past Surgical History Surgical History: appendectomy, bariatric surgery, cholecystectomy, herniorrhaphy - Social History Smoking Status: Never smoker Smokeless Tobacco Status: No Alcohol use: occasionally Drug use: none Occupational status: retired Current living situation: Home - Independent Activity Level: Independent ambulation Recent Out of Country Travel Within the Last 8 Weeks: No Exposure or Possible Exposure to Illness During Travel: No - Family History Mother Living Status: Still Living Hx Family Cardiac Disorders: Yes (CVA) Father Living Status: Hx Family Cardiac Disorders: Yes Infectious Disease-CN:Meds Omeprazole [PriLOSEC] 20 mg PO DAILY 09/28/14 [History] Propranolol [Inderal] 10 mg PO BID 09/28/14 [History] Warfarin [Coumadin] 7.5 mg PO QAM 09/28/14 [History] FLUoxetine HCl [PROzac] 10 mg PO DAILY 10/14/16 [History] Tramadol HCl [Ultram] 50 mg PO TID PRN 10/14/16 [History] 3 Allergy/AdvReac Type Severity Reaction Status Date / Time citalopram [From Celexa] AdvReac Mild Headache Verified 10/13/16 21:57 All systems: reviewed and no additional remarkable complaints except as stated Exam - Constitutional Vitals: Temp Pulse Resp BP Pulse Ox 98.4 F 77 15 153/78 96 10/21/16 15:08 10/21/16 15:08 10/21/16 15:08 10/21/16 15:08 10/21/16 15:08 General appearance: cooperative, morbidly obese, no acute distress - Head Head exam: Present: atraumatic, normal inspection, normocephalic - Eye Eye exam: Present: EOMI, normal appearance, PERRL Pupils: Present: normal accommodation - ENT ENT exam: Present: mucous membranes moist - Neck Neck exam: Present: normal inspection - Respiratory Respiratory exam: Present: CTAB. Absent: rales, respiratory distress, rhonchi, wheezes - Cardiovascular Cardiovascular exam: Present: RRR, +S1, +S2 - GI/Abdominal GI/Abdominal exam: Present: distended (obese), normal bowel sounds, soft. Absent: tenderness - Extremities Exam Extremities exam: Present: pedal edema (3+ pitting edema LLE). Absent: joint swelling, tenderness Additional comments: ERythema to the LLE up to the left hip, improved per patient report. Large serous blister noted to the posterior calf. 0.5cm open wound from prior debridement noted to be draining serous fluid. - Neurological Exam Neurological exam: Present: alert, oriented X3, no focal deficits - Psychiatric Psychiatric exam: Present: normal affect, normal mood - Skin Skin exam: Present: dry, intact, normal color, warm Infectious Disease CN: Results - Labs CBC & Chem 7: 10/22/16 04:20 10/22/16 04:20 Cultures: Cultures 10/18/16 09:00 Wound Culture - Final Left Leg No growth. Consult Discharge Plan - Plan Referrals: Corine Clancy MD [Primary Care Provider] - 10/30/16 1:45 pm
[2016-10-21] MEDS ORDERED: *HR* Warfarin 5 MG TABLET PO ONE (18:00)
[2016-10-21] MEDS: Clotrimazole 1% CRM 15 GM TUBE TP SCH (20:40)
[2016-10-22 04:30] LABS: Basophils # 0.1 K/mcL (0.0-0.2); Basophils % 0.7 %; Eosinophils # 0.2 K/mcL (0.0-0.6); Eosinophils % 2.4 %; Hematocrit 38.3 % (37.5-50.1); Hemoglobin 12.8 g/dL (12.9-16.9); Immature Granulocytes % 2.1 % (0-4); Lymphocytes # 1.7 K/mcL (0.6-4.6); Lymphocytes % 17.7 %; Mean Corpuscular HGB Conc 33.4 g/dL (31.6-35.5); Mean Corpuscular Hemoglobin 31.5 pg (28.0-33.3); Mean Corpuscular Volume 94.3 fL (83.0-100.0); Mean Platelet Volume 9.1 fL (9.4-12.4); Monocytes # 0.7 K/mcL (0.0-1.3); Monocytes % 6.7 %; Neutrophils # 6.8 K/mcL (1.6-8.9); Platelet Count 237 K/mcL (140-400); Red Blood Count 4.06 M/mcL (4.19-5.50); Red Cell Distribution Width 13.8 % (11.5-14.5); Segmented Neutrophils % 70.4 %
[2016-10-22 04:32] LABS: INR 1.9; Prothrombin Time 20.6 Seconds (9.4-12.1)
[2016-10-22 04:43] LABS: BUN/Creatinine Ratio 15 (6-26); Blood Urea Nitrogen 14 mg/dL (8-26); Calcium 9.9 mg/dL (8.6-10.8); Carbon Dioxide 30 mEq/L (19-29); Chloride 103 mEq/L (98-109); Glucose 106 mg/dL (70-99); Osmolality,Calculated 291 (280-300); Potassium 3.8 mEq/L (3.5-4.5); Sodium 140 mEq/L (136-145); eGFR For African Americans > 60 (> 60); eGFR For Non-African Americans > 60 (> 60)
[2016-10-22] MEDS: Clotrimazole 1% CRM 15 GM TUBE TP SCH ×2 (08:53→21:04)
[2016-10-22] MEDS: FLUoxetine HCl 10 MG CAPSULE PO SCH (08:53)
[2016-10-22] MEDS: *HR* HYDROcodone/Acet 5/325 mg TABLET PO PRN (08:53)
--- NOTE | 2016-10-22 14:13 | Podiatry Consult Note ---
Date of Encounter: 10/22/16 Time of Encounter: 12:50 Assessment and Plan (1) Cellulitis Current visit: Yes Status: Acute Cellulitis to the LLE with blisters to the posterior calf and 3+ edema secondary to venous insufficiency. Erythema to LLE is receding from area that was outlined. WBC: 9.7 and a febrile. Moderate amount of serous drainage observed to dressing, no pus, no odor. S/p incision and debridement of blister to the posterior LLE by Dr. Wooten on . Wound cultures negative. CT of LLE negative for fluid collection, no osteomyelitis, no soft tissue gas. Venous doppler of LLE negative for DVT. Infectious Disease managing antibiotic therapy. We want the blisters to drain. Recommend twice daily dressing changes to the LLE with adaptic and 4x4 dry sterile gauze applied to blisters with kerlix starting from toes to tibia and then apply sonia wrap from toes to tibia. Wound care orders written. Clotrimazole cream was ordered by ID for tinea pedis of both feet. Continue cream to both feet as ordered. Will continue to closely monitor LLE. Qualifiers: Site of cellulitis: extremity Site of cellulitis of extremity: lower extremity Laterality: left Qualified Code(s): L03.116 - Cellulitis of left lower limb (2) DVT, lower extremity, recurrent Current visit: No Status: Chronic On Coumadin. Venous duplex negative for DVT of LLE. Qualifiers: Laterality: bilateral Qualified Code(s): I82.403 - Acute embolism and thrombosis of unspecified deep veins of lower extremity, bilateral (3) Chronic venous insufficiency Current visit: Yes Status: Acute Integumentary changes of BLE are consistent with chronic venous insufficiency to BLE. (4) Tinea pedis Current visit: Yes Status: Acute Peeling skin to the plantar aspect of both feet consistent with tinea pedis. No open areas to the feet. COntinue Clotrimazole to both feet as ordered. Qualifiers: Laterality: bilateral Qualified Code(s): B35.3 - Tinea pedis History of Present Illness HPI: Mr. Villegas is a 66 year old male admitted to [place] for sepsis, cellulitis, and UTI on 10/13/16. Patient has a medical history significant for hypertension, GERD , DVT, and depression. Podiatry was consulted for left lower extremity cellulitis. Patient states 9 days ago he had redness, swelling, and pain to the LLE with complaints of fever and chills. Patient states he has a history of recurrent cellulitis to BLE. Patient does have a history of a DVT and is on Coumadin. Upon admission a venous duplex was ordered of the left lower extremity and was negative for a DVT. A CT of the LLE was performed on 10/19/16, which was negative for osteomyelitis, no soft tissue gas, and no fluid collection was seen. Dr. Wooten incised and debrided a blister to the posterior calf of the LLE on 10/19/16, wound cultures were sent at that time and negative. Patient states his LLE is looking better, but it is still swollen. Rates pain at a 2 out of 10 to the LLE. No c/o fever or chills overnight. No known injury or trauma. Past Med Surg Social Fam HX - Past Medical History Medical history: DVT, GERD, hypertension, other (Recurrent LE cellulitis) Psychiatric history: depression - Past Surgical History Surgical History: appendectomy, bariatric surgery, cholecystectomy, herniorrhaphy - Social History Smoking Status: Never smoker Smokeless Tobacco Status: No Alcohol use: occasionally Drug use: none - Family History Mother Living Status: Still Living Hx Family Cardiac Disorders: Yes (CVA) Father Living Status: Hx Family Cardiac Disorders: Yes Medications and Allergies Omeprazole [PriLOSEC] 20 mg PO DAILY 09/28/14 [History] Propranolol [Inderal] 10 mg PO BID 09/28/14 [History] Warfarin [Coumadin] 7.5 mg PO QAM 09/28/14 [History] FLUoxetine HCl [PROzac] 10 mg PO DAILY 10/14/16 [History] Tramadol HCl [Ultram] 50 mg PO TID PRN 10/14/16 [History] 3 Allergy/AdvReac Type Severity Reaction Status Date / Time citalopram [From Celexa] AdvReac Mild Headache Verified 10/13/16 21:57 All Systems Reviewed: A 10-system review of systems was performed and is negative for pertinent findings except as documented above in the HPI. Physical Exam - Constitutional Vitals: Temp Pulse Resp BP Pulse Ox 97.9 F 84 16 119/76 94 10/22/16 11:12 10/22/16 11:12 10/22/16 11:12 10/22/16 11:12 10/22/16 11:12 General appearance: cooperative, morbidly obese, no acute distress Exam: General appearance: alert awake oriented X 3. Calm and pleasant, no acute distress.. Vascular: Pedal pulses +1/4 DP/PT , No evidence of cyanosis, pallor or rubor, Edema graded at 1+/4 right and 3+4 left, skin Temperature warm, No calf pain with manual compression. capillary refill time is immediate to digits. Neurologic: Sensation intact with light touch to both feet Integument: Hemosiderin staining with cobblestone appearance to anterior tibial region of RLE. LLE with erythema and swelling, there is a large serous filled blister to the posterior calf with an open area measuring 1 cm in length x 2 cm in width to the center secondary to I&D. No pus, no odor. Serous fluid actively draining. Peeling skin to the plantar aspect of both feet consistent with tinea pedis, no cracks or open areas. Results - Labs Result Diagrams: 10/22/16 04:20 10/22/16 04:20 Labs: Abnormal lab results RBC 4.06 M/mcL (4.19-5.50) L 10/22/16 04:20 Hgb 12.8 g/dL (12.9-16.9) L 10/22/16 04:20 MPV 9.1 fL (9.4-12.4) L 10/22/16 04:20 Nucleated RBCs/100 WBC 0.2 /100 WBC (0) H 10/16/16 05:42 Platelet Estimate Decreased (Normal) L 10/16/16 05:42 ESR 91 mm/hr (0-10) H 10/19/16 05:00 PT 20.6 Seconds (9.4-12.1) H 10/22/16 04:20 Carbon Dioxide 30 mEq/L (19-29) H 10/22/16 04:20 Glucose 106 mg/dL (70-99) H 10/22/16 04:20 POC Glucose 124 (58-89) H 10/13/16 22:02 Lactic Acid 2.4 mmol/L (0.5-2.2) H 10/14/16 18:14 Phosphorus 1.6 mg/dL (2.3-4.7) L 10/15/16 04:10 Total Bilirubin 1.5 mg/dL (0.2-1.2) H 10/13/16 23:23 C-Reactive Protein 64 mg/L (Less than 5) H 10/19/16 05:00 Globulin 3.7 g/dL (2.4-3.5) H 10/13/16 23:23 Albumin/Globulin Ratio 1.0 (1.1-2.2) L 10/13/16 23:23 Urine Clarity Cloudy (Clear) A 10/14/16 01:57 Urine Ketones Trace mg/dL (Negative) H 10/14/16 01:57 Urine Blood Moderate (Negative) H 10/14/16 01:57 Urine Bilirubin Small (Negative) H 10/14/16 01:57 Ur Leukocyte Esterase Small (Negative) H 10/14/16 01:57 Urine Microscopic RBC 3-5 per hpf (0-3) H 10/14/16 01:57 Urine Microscopic WBC 5-15 per hpf (0-3) H 10/14/16 01:57 Ur Squamous Epith Cells Moderate per lpf (None-Few) H 10/14/16 01:57 Urine Bacteria Moderate per hpf (None-Few) H 10/14/16 01:57 Ur Culture Indicated? YES (NO) A 10/14/16 01:57 Vancomycin Trough 26.0 mcg/mL (10-20) H* 10/21/16 08:24 H & H 10/22/16 Range/Units 04:20 Hgb 12.8 L (12.9-16.9) g/dL Hct 38.3 (37.5-50.1) % All other labs normal. Consult Discharge Plan - Plan Referrals: Corine Clancy MD [Primary Care Provider] - 10/30/16 1:45 pm
--- NOTE | 2016-10-22 14:38 | Infectious Disease Progress No ---
Date of Encounter: 10/22/16 Time of Encounter: 14:35 - Assessment and Plan (1) Sepsis Current Visit: Yes Status: Resolved The patient had two SIRS criteria on admission with KANDIS, lactic acidosis, and encephalopathy. Likely secondary to LLE cellulitis. Improved. WBC count has normalized. Tachycardia, KANDIS, lactic acidosis, and encephalopathy have resolved. Blood cultures drawn 10/13/16 are negative x 2 sets. Qualifiers: Sepsis type: sepsis due to unspecified organism Qualified Code(s): A41.9 - Sepsis, unspecified organism (2) Cellulitis Current Visit: Yes Status: Acute Location: LLE. Causative organism unclear. Non-purulent. Improved per patient report. CT LLE shows no abscess or bony changes. Etiology likely multifactorial: tinea pedis + venous insufficiency. Delayed response likely secondary to poor tissue penetration of medication. Currently, patient on Daptomycin and Augmentin. Discontinue Daptomycin. Re-start Vancomycin. Continue Augmentin. If patient continues to improve clinically, will likely transition to oral antibiotics on discharge. Duration of treatment depends on the clinical picture. Podiatry consulted and following to assist with wound care management. Await recommendations. Qualifiers: Site of cellulitis: extremity Site of cellulitis of extremity: lower extremity Laterality: left Qualified Code(s): L03.116 - Cellulitis of left lower limb (3) Acute kidney injury Current Visit: Yes Status: Resolved Likely secondary to sepsis. Resolved. (4) Tinea pedis Current Visit: Yes Status: Acute Start Lotrimin BID - apply to bilateral feet. Discussed the importance of good foot hygiene with the patient. Qualifiers: Laterality: bilateral Qualified Code(s): B35.3 - Tinea pedis (5) Lactic acidosis Current Visit: Yes Status: Resolved Likely secondary to sepsis. Resolved. (6) Metabolic encephalopathy Current Visit: Yes Status: Resolved Likely secondary to sepsis. Resolved. (7) Hypokalemia Current Visit: Yes Status: Resolved (8) Morbid obesity with BMI of 45.0-49.9, adult Current Visit: Yes Status: Acute - Subjective Interval history: Patient seen and examined. No acute events noted overnight. Patient resting quietly in bed with his at the bedside. Denies fevers, chills, or rigors. Denies chest pain, shortness of breath, or cough. Denies nausea, vomiting, or diarrhea. Denies abdominal pain and states his appetite is good. Denies urinary complaints. Reports pain in the LLE is 2/10. He does complains of chronic back pain at this time. Denies oral thrush or new skin lesions. States that overall he feels like his leg is better today. Infect Dis PN-Objective Data - Labs CBC & Chem 7: 10/22/16 04:20 10/22/16 04:20 Labs: Laboratory Results - last 24 hr 10/22/16 10/22/16 10/22/16 04:20 04:20 04:20 WBC 9.7 RBC 4.06 L Hgb 12.8 L Hct 38.3 MCV 94.3 MCH 31.5 MCHC 33.4 RDW 13.8 Plt Count 237 MPV 9.1 L Immature Gran % 2.1 Seg Neutrophils % 70.4 Lymphocytes % 17.7 Monocytes % 6.7 Eosinophils % 2.4 Basophils % 0.7 Neutrophils # 6.8 Lymphocytes # 1.7 Monocytes # 0.7 Eosinophils # 0.2 Basophils # 0.1 PT 20.6 H INR 1.9 Sodium 140 Potassium 3.8 Chloride 103 Carbon Dioxide 30 H BUN 14 Creatinine 0.95 Est GFR ( Amer) > 60 Est GFR (Non-Af Amer) > 60 BUN/Creatinine Ratio 15 Glucose 106 H Calculated Osmolality 291 Calcium 9.9 Cultures: Cultures 10/18/16 09:00 Wound Culture - Final Left Leg No growth. Exam - Constitutional Vitals: Temp Pulse Resp BP Pulse Ox 97.9 F 84 16 119/76 94 10/22/16 11:12 10/22/16 11:12 10/22/16 11:12 10/22/16 11:12 10/22/16 11:12 General appearance: cooperative, morbidly obese, no acute distress - Head Head exam: Present: atraumatic, normal inspection, normocephalic - Eye Eye exam: Present: EOMI, normal appearance, PERRL Pupils: Present: normal accommodation - ENT ENT exam: Present: mucous membranes moist - Neck Neck exam: Present: normal inspection - Respiratory Respiratory exam: Present: CTAB. Absent: rales, respiratory distress, rhonchi, wheezes - Cardiovascular Cardiovascular exam: Present: RRR, +S1, +S2 - GI/Abdominal GI/Abdominal exam: Present: distended (obese), normal bowel sounds, soft. Absent: tenderness - Extremities Exam Extremities exam: Present: pedal edema (2+ LLE). Absent: joint swelling, tenderness Additional comments: LLE erythema improved. Non-tender. Dressing C/D/I. - Neurological Exam Neurological exam: Present: alert, oriented X3, no focal deficits - Psychiatric Psychiatric exam: Present: normal affect, normal mood - Skin Skin exam: Present: dry, intact, normal color, warm Consult Discharge Plan - Plan Referrals: Corine Clancy MD [Primary Care Provider] - 10/30/16 1:45 pm
[2016-10-22] MEDS ORDERED: Vancomycin 1,750 MG in D5% in Water 500 ML IVPB SCH (15:00)
[2016-10-22] MEDS ORDERED: Vancomycin 2,000 MG in D5% in Water 250 ML IVPB SCH (15:00)
[2016-10-22] MEDS ORDERED: *HR* Warfarin 5 MG TABLET PO ONE (18:00)
--- NOTE | 2016-10-22 18:03 | Internal Med Progress Note ---
Date of Encounter: 10/22/16 Time of Encounter: 18:00 - Assessment and plan (1) Cellulitis Current Visit: Yes Status: Acute Qualifiers: Site of cellulitis: extremity Site of cellulitis of extremity: lower extremity Laterality: left Qualified Code(s): L03.116 - Cellulitis of left lower limb (2) Current use of safety scientist anticoagulation Current Visit: No Status: Chronic (3) Hypertension Current Visit: No Status: Chronic Qualifiers: Hypertension type: essential hypertension Qualified Code(s): I10 - Essential (primary) hypertension (4) GERD (gastroesophageal reflux disease) Current Visit: No Status: Chronic Qualifiers: Esophagitis presence: esophagitis presence not specified Qualified Code(s) : K21.9 - Gastro-esophageal reflux disease without esophagitis (5) Morbid obesity with BMI of 40.0-44.9, adult Current Visit: No Status: Acute - Subjective Interval history: Mr. David Villegas and matted with left lower extremity cellulitis. He has been in hospital for [address] Hudson has changed multiple antibiotic. His lower extremities is still red warm. Infectious disease is consulted. They recommending to the patient on vancomycin and to Augmentin. His white count is improved and will be rechecked tomorrow. Previous CT is negative. - Constitutional Vitals: Temp Pulse Resp BP Pulse Ox 97.8 F 84 17 127/76 94 10/22/16 15:10 10/22/16 15:10 10/22/16 15:10 10/22/16 15:10 10/22/16 15:10 General appearance: Present: A&O X 3 - Head Head exam: Present: atraumatic, normocephalic - Eye Eye exam: Present: PERRL, conjuntiva pink, sclera anicteric Pupils: Present: PERRL - Neck Neck exam general surgery: Present: supple, trachea midline. Absent: lymphadenopathy - Respiratory Respiratory exam: Present: CTAB. Absent: accessory muscle use, rales, rhonchi, wheezes - Cardiovascular Cardiovascular exam: Present: RRR, +S1, +S2. Absent: diastolic murmur, gallop, rubs, systolic murmur - GI/Abdominal GI/Abdominal exam: Present: normal bowel sounds, soft, no peritoneal signs. Absent: distended, tenderness - Extremities Exam Extremities exam: Present: pedal edema, tenderness, warm, radial pulses palpable and symmetrical. Absent: calf tenderness, cyanotic Additional comments: Left lower leg is red swollen tender and seems edematous. - Neurological Exam Neurological exam: Present: CN II-XII intact, oriented X3, no focal deficits. Absent: pronater drift, facial droop, speech deficit - Skin Skin exam: Present: dry, intact Internal Medicine: Result - Labs CBC & Chem 7: 10/22/16 04:20 10/22/16 04:20 Labs: Short CBC 10/22/16 Range/Units 04:20 WBC 9.7 (4.3-11.1) K/mcL Hgb 12.8 L (12.9-16.9) g/dL Hct 38.3 (37.5-50.1) % Plt Count 237 (140-400) K/mcL Neutrophils # 6.8 (1.6-8.9) K/mcL BMP 10/22/16 04:20 Sodium 140 Potassium 3.8 Chloride 103 Carbon Dioxide 30 H BUN 14 Creatinine 0.95 Glucose 106 H Calcium 9.9 - ABG Interpretation ABG results: PT/INR, D-dimer PT 20.6 Seconds (9.4-12.1) H 10/22/16 04:20 Consult Discharge Plan - Plan Referrals: Corine Clancy MD [Primary Care Provider] - 10/30/16 1:45 pm
[2016-10-22] MEDS: Vancomycin 1,250 MG in D5% in Water 250 ML IVPB SCH (18:22)
[2016-10-23] MEDS: Vancomycin 1,250 MG in D5% in Water 250 ML IVPB SCH ×2 (05:14→16:38)
[2016-10-23 05:30] LABS: INR 1.6; Prothrombin Time 17.7 Seconds (9.4-12.1)
[2016-10-23] MEDS: FLUoxetine HCl 10 MG CAPSULE PO SCH (09:32)
[2016-10-23] MEDS: Clotrimazole 1% CRM 15 GM TUBE TP SCH ×2 (09:33→22:10)
--- NOTE | 2016-10-23 10:23 | Internal Med Progress Note ---
Date of Encounter: 10/23/16 Time of Encounter: 10:22 - Assessment and plan (1) Cellulitis Current Visit: Yes Status: Acute Qualifiers: Site of cellulitis: extremity Site of cellulitis of extremity: lower extremity Laterality: left Qualified Code(s): L03.116 - Cellulitis of left lower limb (2) Current use of terminal system operator anticoagulation Current Visit: No Status: Chronic (3) Hypertension Current Visit: No Status: Chronic Qualifiers: Hypertension type: essential hypertension Qualified Code(s): I10 - Essential (primary) hypertension (4) GERD (gastroesophageal reflux disease) Current Visit: No Status: Chronic Qualifiers: Esophagitis presence: esophagitis presence not specified Qualified Code(s) : K21.9 - Gastro-esophageal reflux disease without esophagitis (5) Morbid obesity with BMI of 40.0-44.9, adult Current Visit: No Status: Acute - Subjective Interval history: Mr. David Villegas and matted with left lower extremity cellulitis. He has been in hospital for [address] Hudson has changed multiple antibiotic. His lower extremities is still red warm. Infectious disease is consulted. They recommending to the patient on vancomycin and to Augmentin. His white count is improved and will be rechecked tomorrow. Previous CT is negative. - Constitutional Vitals: Temp Pulse Resp BP Pulse Ox 98.5 F 72 14 148/89 94 10/23/16 07:59 10/23/16 07:59 10/23/16 07:59 10/23/16 07:59 10/23/16 07:59 General appearance: Present: A&O X 3 - Head Head exam: Present: atraumatic, normocephalic - Eye Eye exam: Present: PERRL, conjuntiva pink, sclera anicteric Pupils: Present: PERRL - Neck Neck exam general surgery: Present: supple, trachea midline. Absent: lymphadenopathy - Respiratory Respiratory exam: Present: CTAB. Absent: accessory muscle use, rales, rhonchi, wheezes - Cardiovascular Cardiovascular exam: Present: RRR, +S1, +S2. Absent: diastolic murmur, gallop, rubs, systolic murmur - GI/Abdominal GI/Abdominal exam: Present: normal bowel sounds, soft, no peritoneal signs. Absent: distended, tenderness - Extremities Exam Extremities exam: Present: warm, radial pulses palpable and symmetrical. Absent : calf tenderness, cyanotic, pedal edema - Neurological Exam Neurological exam: Present: CN II-XII intact, oriented X3, no focal deficits. Absent: pronater drift, facial droop, speech deficit - Skin Skin exam: Present: dry, intact Internal Medicine: Result - Labs CBC & Chem 7: 10/22/16 04:20 10/22/16 04:20 - ABG Interpretation ABG results: PT/INR, D-dimer PT 17.7 Seconds (9.4-12.1) H 10/23/16 04:42 Consult Discharge Plan - Plan Referrals: Corine Clancy MD [Primary Care Provider] - 10/30/16 1:45 pm
--- NOTE | 2016-10-23 13:53 | Podiatry Progress Note ---
Date of Encounter: 10/23/16 Time of Encounter: 12:15 - Assessment and Plan (1) Cellulitis Current Visit: Yes Status: Acute Significant improvement to LLE. Decreased swelling today and blisters appear to be drying up. There are still a few spots with serous fluid collecting. Erythema is receding and becoming darker. Small amount of serous drainage observed to dressing, no pus, no odor. S/p incision and debridement of blister to the posterior LLE by Dr. Wooten on . Wound cultures negative. CT of LLE negative for fluid collection, no osteomyelitis, no soft tissue gas. Venous doppler of LLE negative for DVT. Infectious Disease managing antibiotic therapy. Blister of LLE cleansed with alcohol, three punctures made to the blister where serous fluid was collecting to the most dependent aspect to allow the blisters to drain, serous fluid expressed, no pus, no odor. Continue twice daily dressing changes to the LLE with adaptic and 4x4 dry sterile gauze applied to blisters with kerlix starting from toes to tibia and then apply sonia wrap from toes to tibia. Wound care orders written. Continue Clotrimazole cream to both feet as ordered. Will continue to closely monitor LLE. Patient will need to continue the dressing changed twice daily at home and follow up in wound care with Dr. Hughes one week after discharge from the hospital. Qualifiers: Site of cellulitis: extremity Site of cellulitis of extremity: lower extremity Laterality: left Qualified Code(s): L03.116 - Cellulitis of left lower limb (2) DVT, lower extremity, recurrent Current Visit: No Status: Chronic On Coumadin. Venous duplex negative for DVT of LLE. Qualifiers: Laterality: bilateral Qualified Code(s): I82.403 - Acute embolism and thrombosis of unspecified deep veins of lower extremity, bilateral (3) Chronic venous insufficiency Current Visit: Yes Status: Acute Integumentary changes of BLE are consistent with chronic venous insufficiency to BLE. (4) Tinea pedis Current Visit: Yes Status: Acute Peeling skin to the plantar aspect of both feet and erythema with maceration to the interdigital webspaces #1 through #5 of both feet consistent with tinea pedis. No open areas to the feet. Continue Clotrimazole to both feet as ordered. Qualifiers: Laterality: bilateral Qualified Code(s): B35.3 - Tinea pedis Subjective Interval history: Patient was evaluated yesterday for cellulitis and blisters to the LLE. Wound care orders were written for twice daily dressing changes. Patient is lying bed and states he has a head ache. Patient states his LLE is looking better today and the swelling has decreased. No c/o fever or chills overnight. Objective - Vital Signs Vital Signs: Vital Signs Temp Pulse Resp BP Pulse Ox 10/23/16 12:43 97.9 F 75 18 129/77 95 10/23/16 07:59 98.5 F 72 14 148/89 94 10/23/16 02:55 98.3 F 87 16 154/83 95 10/22/16 22:30 98.6 F 91 18 156/65 94 10/22/16 21:03 95 10/22/16 18:49 97.9 F 95 16 155/83 94 10/22/16 15:10 97.8 F 84 17 127/76 94 Intake and Output 10/22/16 10/23/16 10/23/16 23:59 07:59 15:59 Intake Total 250 / 250 480 / 480 Output Total 400 / 400 Balance -150 / -150 480 / 480 Intake: IV Fluids 250 / 250 Vancocin 1,250 MG In 250 / 250 Dextrose 5% 250 ML @ 166. 667 mls/hr IVPB Q12H [facility] Rx#:[id number] Oral 480 / 480 Output: Urine 400 / 400 Other: Meal Breakfast Percent of Meal Consumed 95% Weight 157.124 kg Patient Weight 10/23/16 23:59 Weight 157.124 kg - Exam Exam: General appearance: alert awake oriented X 3. Calm and pleasant, no acute distress.. Vascular: Pedal pulses +1/4 DP/PT , No evidence of cyanosis, pallor or rubor, Edema graded at 1+/4 right and 3+4 left, skin Temperature warm, No calf pain with manual compression. capillary refill time is immediate to digits. Neurologic: Sensation intact with light touch to both feet Integument: Hemosiderin staining with cobblestone appearance to anterior tibial region of RLE. LLE with decreased erythema and swelling, there is a large serous filled blister to the posterior calf with an open area measuring 1 cm in length x 2 cm in width to the center secondary to I&D. No pus, no odor. Serous fluid actively draining. Peeling skin to the plantar aspect of both feet with erythema and macerated skin to the interdigital webspace of both feet consistent with tinea pedis, no cracks or open areas. - Lab Result Diagrams: 10/22/16 04:20 10/22/16 04:20 Labs: Abnormal lab results RBC 4.06 M/mcL (4.19-5.50) L 10/22/16 04:20 Hgb 12.8 g/dL (12.9-16.9) L 10/22/16 04:20 MPV 9.1 fL (9.4-12.4) L 10/22/16 04:20 Nucleated RBCs/100 WBC 0.2 /100 WBC (0) H 10/16/16 05:42 Platelet Estimate Decreased (Normal) L 10/16/16 05:42 ESR 91 mm/hr (0-10) H 10/19/16 05:00 PT 17.7 Seconds (9.4-12.1) H 10/23/16 04:42 Carbon Dioxide 30 mEq/L (19-29) H 10/22/16 04:20 Glucose 106 mg/dL (70-99) H 10/22/16 04:20 POC Glucose 124 (58-89) H 10/13/16 22:02 Lactic Acid 2.4 mmol/L (0.5-2.2) H 10/14/16 18:14 Phosphorus 1.6 mg/dL (2.3-4.7) L 10/15/16 04:10 Total Bilirubin 1.5 mg/dL (0.2-1.2) H 10/13/16 23:23 C-Reactive Protein 64 mg/L (Less than 5) H 10/19/16 05:00 Globulin 3.7 g/dL (2.4-3.5) H 10/13/16 23:23 Albumin/Globulin Ratio 1.0 (1.1-2.2) L 10/13/16 23:23 Urine Clarity Cloudy (Clear) A 10/14/16 01:57 Urine Ketones Trace mg/dL (Negative) H 10/14/16 01:57 Urine Blood Moderate (Negative) H 10/14/16 01:57 Urine Bilirubin Small (Negative) H 10/14/16 01:57 Ur Leukocyte Esterase Small (Negative) H 10/14/16 01:57 Urine Microscopic RBC 3-5 per hpf (0-3) H 10/14/16 01:57 Urine Microscopic WBC 5-15 per hpf (0-3) H 10/14/16 01:57 Ur Squamous Epith Cells Moderate per lpf (None-Few) H 10/14/16 01:57 Urine Bacteria Moderate per hpf (None-Few) H 10/14/16 01:57 Ur Culture Indicated? YES (NO) A 10/14/16 01:57 Vancomycin Trough 26.0 mcg/mL (10-20) H* 10/21/16 08:24 Consult Discharge Plan - Plan Referrals: Corine Clancy MD [Primary Care Provider] - 10/30/16 1:45 pm
--- NOTE | 2016-10-23 14:16 | Infectious Disease Progress No ---
Date of Encounter: 10/23/16 Time of Encounter: 14:14 - Assessment and Plan (1) Sepsis Current Visit: Yes Status: Resolved The patient had two SIRS criteria on admission with KANDIS, lactic acidosis, and encephalopathy. Likely secondary to LLE cellulitis. Improved. WBC count has normalized. Tachycardia, KANDIS, lactic acidosis, and encephalopathy have resolved. Blood cultures drawn 10/13/16 are negative x 2 sets. Qualifiers: Sepsis type: sepsis due to unspecified organism Qualified Code(s): A41.9 - Sepsis, unspecified organism (2) Cellulitis Current Visit: Yes Status: Acute Location: LLE. Causative organism unclear. Non-purulent. Continues to improve. CT LLE shows no abscess or bony changes. Etiology likely multifactorial: tinea pedis + venous insufficiency. Delayed response likely secondary to poor tissue penetration of medication. Continue Vancomycin IV. Pharmacy to dose. Goal trough ~15. Continue Augmentin. If patient continues to improve clinically, will likely transition to oral antibiotics on discharge --> Bactrim and Augmentin to complete a 14 day course. Duration of treatment depends on the clinical picture. Continue wound care per the podiatry team. Qualifiers: Site of cellulitis: extremity Site of cellulitis of extremity: lower extremity Laterality: left Qualified Code(s): L03.116 - Cellulitis of left lower limb (3) Acute kidney injury Current Visit: Yes Status: Resolved Likely secondary to sepsis. Resolved. (4) Tinea pedis Current Visit: Yes Status: Acute Start Lotrimin BID - apply to bilateral feet. Discussed the importance of good foot hygiene with the patient. Qualifiers: Laterality: bilateral Qualified Code(s): B35.3 - Tinea pedis (5) Lactic acidosis Current Visit: Yes Status: Resolved Likely secondary to sepsis. Resolved. (6) Metabolic encephalopathy Current Visit: Yes Status: Resolved Likely secondary to sepsis. Resolved. (7) Hypokalemia Current Visit: Yes Status: Resolved (8) Morbid obesity with BMI of 45.0-49.9, adult Current Visit: Yes Status: Acute - Subjective Interval history: Patient seen and examined. No acute events noted overnight. Case discussed with ANA MARIA Martell from Podiatry who states leg continues to improve today. Denies fevers, chills, or rigors. Denies chest pain, shortness of breath, or cough. Denies nausea, vomiting, or diarrhea. Denies abdominal pain and states his appetite is good. Denies urinary complaints. Denies pain at this time. Denies oral thrush or new skin lesions. States that overall he feels like his leg is better today. Infect Dis PN-Objective Data - Labs CBC & Chem 7: 10/22/16 04:20 10/22/16 04:20 Labs: Laboratory Results - last 24 hr 10/23/16 04:42 PT 17.7 H INR 1.6 Cultures: Cultures 10/18/16 09:00 Wound Culture - Final Left Leg No growth. Exam - Constitutional Vitals: Temp Pulse Resp BP Pulse Ox 97.9 F 75 18 129/77 95 10/23/16 12:43 10/23/16 12:43 10/23/16 12:43 10/23/16 12:43 10/23/16 12:43 General appearance: cooperative, morbidly obese, no acute distress - Head Head exam: Present: atraumatic, normal inspection, normocephalic - Eye Eye exam: Present: EOMI, normal appearance, PERRL Pupils: Present: normal accommodation - ENT ENT exam: Present: mucous membranes moist - Neck Neck exam: Present: normal inspection - Respiratory Respiratory exam: Present: CTAB. Absent: rales, respiratory distress, rhonchi, wheezes - Cardiovascular Cardiovascular exam: Present: RRR, +S1, +S2 - GI/Abdominal GI/Abdominal exam: Present: distended (obese), normal bowel sounds, soft. Absent: tenderness - Extremities Exam Extremities exam: Present: pedal edema (2+ LLE). Absent: joint swelling, tenderness Additional comments: Compression dressing to the lower LLE C/D/I. Edema and erythema of the left foot improved. - Neurological Exam Neurological exam: Present: alert, oriented X3, no focal deficits - Psychiatric Psychiatric exam: Present: normal affect, normal mood - Skin Skin exam: Present: dry, intact, normal color, warm Consult Discharge Plan - Plan Referrals: Corine Clancy MD [Primary Care Provider] - 10/30/16 1:45 pm
[2016-10-23] MEDS ORDERED: *HR* Warfarin 3 MG TABLET PO ONE (18:00)
[2016-10-24 05:24] LABS: INR 1.6; Prothrombin Time 16.9 Seconds (9.4-12.1)
[2016-10-24] MEDS: Vancomycin 1,250 MG in D5% in Water 250 ML IVPB SCH ×2 (06:39→18:04)
[2016-10-24] MEDS: *HR* HYDROcodone/Acet 5/325 mg TABLET PO PRN ×2 (08:38→21:26)
[2016-10-24] MEDS: FLUoxetine HCl 10 MG CAPSULE PO SCH (08:38)
[2016-10-24] MEDS: Clotrimazole 1% CRM 15 GM TUBE TP SCH ×2 (08:51→21:19)
--- NOTE | 2016-10-24 10:53 | Internal Med Progress Note ---
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 David Villegas and matted with left lower extremity cellulitis. He has been in hospital for [address] Hudson has changed multiple antibiotic. His lower extremities is still red warm. Infectious disease is consulted. They recommending to the patient on vancomycin and to Augmentin. His white count is improved and will be rechecked tomorrow. Previous CT is negative. - Constitutional Vitals: Temp Pulse Resp BP Pulse Ox 98.0 F 76 16 148/84 94 10/24/16 07:07 10/24/16 07:07 10/24/16 07:07 10/24/16 07:07 10/24/16 07:07 General appearance: Present: A&O X 3 - Head Head exam: Present: atraumatic, normocephalic - Eye Eye exam: Present: PERRL, conjuntiva pink, sclera anicteric Pupils: Present: PERRL - Neck Neck exam general surgery: Present: supple, trachea midline. Absent: lymphadenopathy - Respiratory Respiratory exam: Present: CTAB. Absent: accessory muscle use, rales, rhonchi, wheezes - Cardiovascular Cardiovascular exam: Present: RRR, +S1, +S2. Absent: diastolic murmur, gallop, rubs, systolic murmur - GI/Abdominal GI/Abdominal exam: Present: normal bowel sounds, soft, no peritoneal signs. Absent: distended, tenderness - Extremities Exam Extremities exam: Present: warm, radial pulses palpable and symmetrical. Absent : calf tenderness, cyanotic, pedal edema - Neurological Exam Neurological exam: Present: CN II-XII intact, oriented X3, no focal deficits. Absent: pronater drift, facial droop, speech deficit - Skin Skin exam: Present: dry, intact Internal Medicine: Result - Labs CBC & Chem 7: 10/22/16 04:20 10/22/16 04:20 - ABG Interpretation ABG results: PT/INR, D-dimer PT 16.9 Seconds (9.4-12.1) H 10/24/16 05:04 Consult Discharge Plan - Plan Referrals: Corine Clancy MD [Primary Care Provider] - 10/30/16 1:45 pm
--- NOTE | 2016-10-24 14:28 | Infectious Disease Progress No ---
Date of Encounter: 10/24/16 Time of Encounter: 14:25 - Assessment and Plan (1) Sepsis Current Visit: Yes Status: Resolved The patient had two SIRS criteria on admission with KANDIS, lactic acidosis, and encephalopathy. Likely secondary to LLE cellulitis. Resolved. WBC count has normalized. Tachycardia, KANDIS, lactic acidosis, and encephalopathy have resolved. Blood cultures drawn 10/13/16 are negative x 2 sets. Qualifiers: Sepsis type: sepsis due to unspecified organism Qualified Code(s): A41.9 - Sepsis, unspecified organism (2) Cellulitis Current Visit: Yes Status: Acute Location: LLE. Causative organism unclear. Non-purulent. Continues to improve. CT LLE shows no abscess or bony changes. Etiology likely multifactorial: tinea pedis + venous insufficiency. Delayed response likely secondary to poor tissue penetration of medication. Continue Vancomycin IV. Pharmacy to dose. Goal trough ~15. Continue Augmentin. If patient continues to improve clinically, will likely transition to oral antibiotics on discharge --> Bactrim and Augmentin to complete a 14 day course. Treat through 10/27/16. Monitor renal function and for drug toxicity while on IV Vancomycin. Continue wound care per the podiatry team. Qualifiers: Site of cellulitis: extremity Site of cellulitis of extremity: lower extremity Laterality: left Qualified Code(s): L03.116 - Cellulitis of left lower limb (3) Acute kidney injury Current Visit: Yes Status: Resolved Likely secondary to sepsis. Resolved. (4) Tinea pedis Current Visit: Yes Status: Acute Start Lotrimin BID - apply to bilateral feet. Continue for 14 days. Discussed the importance of good foot hygiene with the patient. Qualifiers: Laterality: bilateral Qualified Code(s): B35.3 - Tinea pedis (5) Lactic acidosis Current Visit: Yes Status: Resolved Likely secondary to sepsis. Resolved. (6) Metabolic encephalopathy Current Visit: Yes Status: Resolved Likely secondary to sepsis. Resolved. (7) Hypokalemia Current Visit: Yes Status: Resolved (8) Morbid obesity with BMI of 45.0-49.9, adult Current Visit: Yes Status: Acute - Subjective Interval history: Patient seen and examined. No acute events noted overnight. Denies fevers, chills, or rigors. Denies chest pain, shortness of breath, or cough. Denies nausea, vomiting, or diarrhea. Denies abdominal pain and states his appetite is good. Denies urinary complaints. Denies pain at this time. Denies oral thrush or new skin lesions. States that overall he feels like his leg is better today. He denies any leg pain at this time. Reports chronic back pain and states he had a headache earlier from his IV pump beeping for too long. Infect Dis PN-Objective Data - Labs CBC & Chem 7: 10/22/16 04:20 10/22/16 04:20 Labs: Laboratory Results - last 24 hr 10/24/16 10/24/16 05:04 05:04 PT 16.9 H INR 1.6 Vancomycin Trough 15.7 Cultures: Cultures 10/18/16 09:00 Wound Culture - Final Left Leg No growth. Exam - Constitutional Vitals: Temp Pulse Resp BP Pulse Ox 98.6 F 78 16 149/79 94 10/24/16 11:06 10/24/16 11:06 10/24/16 11:06 10/24/16 11:06 10/24/16 11:06 General appearance: cooperative, morbidly obese, no acute distress - Head Head exam: Present: atraumatic, normal inspection, normocephalic - Eye Eye exam: Present: EOMI, normal appearance, PERRL Pupils: Present: normal accommodation - ENT ENT exam: Present: mucous membranes moist - Neck Neck exam: Present: normal inspection - Respiratory Respiratory exam: Present: CTAB. Absent: rales, respiratory distress, rhonchi, wheezes - Cardiovascular Cardiovascular exam: Present: RRR, +S1, +S2 - GI/Abdominal GI/Abdominal exam: Present: distended (obese), normal bowel sounds, soft. Absent: tenderness - Extremities Exam Extremities exam: Present: pedal edema (1+ LLE). Absent: joint swelling, tenderness Additional comments: LLE redness and swelling markedly improved. Serous fluid-filled blister noted to the posterior calf remains intact. Previous I & D site without tenderness, drainage, or erythema. - Neurological Exam Neurological exam: Present: alert, oriented X3, no focal deficits - Psychiatric Psychiatric exam: Present: normal affect, normal mood - Skin Skin exam: Present: dry, intact, normal color, warm Consult Discharge Plan - Plan Referrals: Corine Clancy MD [Primary Care Provider] - 10/30/16 1:45 pm
[2016-10-24] MEDS: Acetaminophen 325 MG TABLET PO PRN (16:30)
--- NOTE | 2016-10-24 16:37 | Podiatry Progress Note ---
Date of Encounter: 10/24/16 Time of Encounter: 12:30 - Assessment and Plan (1) Cellulitis Current Visit: Yes Status: Acute Significant improvement to LLE. Decreased swelling today and blisters appear to be drying up. Erythema continues to recede and darker. Small amount of serous drainage observed to dressing, no pus, no odor. S/p incision and debridement of blister to the posterior LLE by Dr. Wooten on and lanced yesterday on 10/23/16. Wound cultures negative. CT of LLE negative for fluid collection, no osteomyelitis, no soft tissue gas. Venous doppler of LLE negative for DVT. Infectious Disease managing antibiotic therapy. Continue twice daily dressing changes to the LLE with adaptic and 4x4 dry sterile gauze applied to blisters with kerlix starting from toes to tibia and then apply sonia wrap from toes to tibia. Wound care orders written. Continue Clotrimazole cream to both feet as ordered. Will continue to closely monitor LLE. Patient will need to continue the dressing changes twice daily at home and follow up in wound care with Dr. Hughes one week after discharge from the hospital. Qualifiers: Site of cellulitis: extremity Site of cellulitis of extremity: lower extremity Laterality: left Qualified Code(s): L03.116 - Cellulitis of left lower limb (2) DVT, lower extremity, recurrent Current Visit: No Status: Chronic On Coumadin. Venous duplex negative for DVT of LLE. Qualifiers: Laterality: bilateral Qualified Code(s): I82.403 - Acute embolism and thrombosis of unspecified deep veins of lower extremity, bilateral (3) Chronic venous insufficiency Current Visit: Yes Status: Acute Integumentary changes of BLE are consistent with chronic venous insufficiency to BLE. (4) Tinea pedis Current Visit: Yes Status: Acute Peeling skin to the plantar aspect of both feet and erythema with maceration to the interdigital webspaces #1 through #5 of both feet consistent with tinea pedis. No open areas to the feet. Continue Clotrimazole to both feet as ordered. Qualifiers: Laterality: bilateral Qualified Code(s): B35.3 - Tinea pedis Subjective Interval history: Patient is lying bed with dressing intact to LLE. Patient states his LLE is looking better today and the swelling has decreased. No c/o fever or chills overnight. Patient states he is hoping to go home today. 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 Objective - Vital Signs Vital Signs: Vital Signs Temp Pulse Resp BP Pulse Ox 10/24/16 16:24 92 152/89 10/24/16 15:09 98.0 F 85 16 184/98 94 10/24/16 11:06 98.6 F 78 16 149/79 94 10/24/16 07:07 98.0 F 76 16 148/84 94 10/24/16 04:04 98.0 F 78 16 165/91 97 10/23/16 22:50 98.0 F 78 16 165/91 97 10/23/16 18:56 98.5 F 86 12 154/88 96 Intake and Output 10/24/16 10/24/16 10/24/16 07:59 15:59 23:59 Intake Total 360 / 360 Output Total 700 / 700 Balance -340 / -340 Intake: Oral 360 / 360 Output: Urine 700 / 700 Other: Meal Lunch Percent of Meal Consumed 100% - Exam Exam: General appearance: alert awake oriented X 3. Calm and pleasant, no acute distress.. Vascular: Pedal pulses +1/4 DP/PT , No evidence of cyanosis, pallor or rubor, Edema graded at 1+/4 right and 3+4 left, skin Temperature warm, No calf pain with manual compression. capillary refill time is immediate to digits. Neurologic: Sensation intact with light touch to both feet Integument: Hemosiderin staining with cobblestone appearance to anterior tibial region of RLE. LLE with decreased erythema and swelling, there is a large ruptured blister to the posterior calf with an open area measuring 0.5 cm in length x 1 cm in width to the center secondary to I&D. No pus, no odor. Small amount of serous fluid observed to dressing, no active drainage. Peeling skin to the plantar aspect of both feet with erythema and macerated skin to the interdigital webspace of both feet consistent with tinea pedis, no cracks or open areas. - Lab Result Diagrams: 10/22/16 04:20 10/22/16 04:20 Labs: Abnormal lab results RBC 4.06 M/mcL (4.19-5.50) L 10/22/16 04:20 Hgb 12.8 g/dL (12.9-16.9) L 10/22/16 04:20 MPV 9.1 fL (9.4-12.4) L 10/22/16 04:20 Nucleated RBCs/100 WBC 0.2 /100 WBC (0) H 10/16/16 05:42 Platelet Estimate Decreased (Normal) L 10/16/16 05:42 ESR 91 mm/hr (0-10) H 10/19/16 05:00 PT 16.9 Seconds (9.4-12.1) H 10/24/16 05:04 Carbon Dioxide 30 mEq/L (19-29) H 10/22/16 04:20 Glucose 106 mg/dL (70-99) H 10/22/16 04:20 POC Glucose 124 (58-89) H 10/13/16 22:02 Lactic Acid 2.4 mmol/L (0.5-2.2) H 10/14/16 18:14 Phosphorus 1.6 mg/dL (2.3-4.7) L 10/15/16 04:10 Total Bilirubin 1.5 mg/dL (0.2-1.2) H 10/13/16 23:23 C-Reactive Protein 64 mg/L (Less than 5) H 10/19/16 05:00 Globulin 3.7 g/dL (2.4-3.5) H 10/13/16 23:23 Albumin/Globulin Ratio 1.0 (1.1-2.2) L 10/13/16 23:23 Urine Clarity Cloudy (Clear) A 10/14/16 01:57 Urine Ketones Trace mg/dL (Negative) H 10/14/16 01:57 Urine Blood Moderate (Negative) H 10/14/16 01:57 Urine Bilirubin Small (Negative) H 10/14/16 01:57 Ur Leukocyte Esterase Small (Negative) H 10/14/16 01:57 Urine Microscopic RBC 3-5 per hpf (0-3) H 10/14/16 01:57 Urine Microscopic WBC 5-15 per hpf (0-3) H 10/14/16 01:57 Ur Squamous Epith Cells Moderate per lpf (None-Few) H 10/14/16 01:57 Urine Bacteria Moderate per hpf (None-Few) H 10/14/16 01:57 Ur Culture Indicated? YES (NO) A 10/14/16 01:57 Consult Discharge Plan - Plan Referrals: Corine Clancy MD [Primary Care Provider] - 10/30/16 1:45 pm
[2016-10-24] MEDS ORDERED: *HR* Warfarin 7.5 MG TABLET PO ONE (18:00)
[2016-10-24] MEDS: Melatonin 3 MG TABLET PO PRN (21:18)
[2016-10-25] MEDS: Vancomycin 1,250 MG in D5% in Water 250 ML IVPB SCH (06:16)
[2016-10-25 07:41] LABS: eGFR For African Americans > 60 (> 60); eGFR For Non-African Americans > 60 (> 60)
[2016-10-25 07:44] LABS: INR 1.6; Prothrombin Time 17.6 Seconds (9.4-12.1)
[2016-10-25] MEDS: FLUoxetine HCl 10 MG CAPSULE PO SCH (08:00)
[2016-10-25] MEDS: Clotrimazole 1% CRM 15 GM TUBE TP SCH (08:00)
[2016-10-25] MEDS: *HR* HYDROcodone/Acet 5/325 mg TABLET PO PRN (08:00)
[2016-10-25 11:23] VITALS: BP 148/87
[2016-10-25] MEDS ORDERED: *HR* Warfarin 10 MG TABLET PO ONE (13:24)
--- NOTE | 2016-10-25 13:27 | Infectious Disease Progress No ---
Date of Encounter: 10/25/16 Time of Encounter: 13:25 - Assessment and Plan (1) Sepsis Current Visit: Yes Status: Resolved The patient had two SIRS criteria on admission with KANDIS, lactic acidosis, and encephalopathy. Likely secondary to LLE cellulitis. Resolved. WBC count has normalized. Tachycardia, KANDIS, lactic acidosis, and encephalopathy have resolved. Blood cultures drawn 10/13/16 are negative x 2 sets. Qualifiers: Sepsis type: sepsis due to unspecified organism Qualified Code(s): A41.9 - Sepsis, unspecified organism (2) Cellulitis Current Visit: Yes Status: Acute Location: LLE. Causative organism unclear. Non-purulent. Continues to improve. CT LLE shows no abscess or bony changes. Etiology likely multifactorial: tinea pedis + venous insufficiency. Delayed response likely secondary to poor tissue penetration of medication. Continue Vancomycin IV. Pharmacy to dose. Goal trough ~15. Continue Augmentin. If patient continues to improve clinically, will likely transition to oral antibiotics on discharge --> Bactrim and Augmentin to complete a 14 day course. Treat through 10/27/16. Monitor renal function and for drug toxicity while on IV Vancomycin. Continue wound care per the podiatry team. Qualifiers: Site of cellulitis: extremity Site of cellulitis of extremity: lower extremity Laterality: left Qualified Code(s): L03.116 - Cellulitis of left lower limb (3) Acute kidney injury Current Visit: Yes Status: Resolved Likely secondary to sepsis. Resolved. (4) Tinea pedis Current Visit: Yes Status: Acute Start Lotrimin BID - apply to bilateral feet. Continue for 14 days. Discussed the importance of good foot hygiene with the patient. Qualifiers: Laterality: bilateral Qualified Code(s): B35.3 - Tinea pedis (5) Lactic acidosis Current Visit: Yes Status: Resolved Likely secondary to sepsis. Resolved. (6) Metabolic encephalopathy Current Visit: Yes Status: Resolved Likely secondary to sepsis. Resolved. (7) Hypokalemia Current Visit: Yes Status: Resolved (8) Morbid obesity with BMI of 45.0-49.9, adult Current Visit: Yes Status: Acute - Subjective Interval history: Patient seen and examined. No acute events noted overnight. Denies fevers, chills, or rigors. Denies chest pain, shortness of breath, or cough. Denies nausea, vomiting, or diarrhea. Denies abdominal pain and states his appetite is good. Denies urinary complaints. Denies pain at this time. Denies oral thrush or new skin lesions. States that overall he feels like his leg is better today, but states the blister on the posterior calf has sloughed off. He denies any leg pain at this time. Reports chronic back pain and states he had a headache earlier from his IV pump beeping for too long. Infect Dis PN-Objective Data - Labs CBC & Chem 7: 10/22/16 04:20 10/25/16 06:43 Labs: Laboratory Results - last 24 hr 10/25/16 10/25/16 06:43 06:43 PT 17.6 H INR 1.6 Creatinine 0.94 Est GFR ( Amer) > 60 Est GFR (Non-Af Amer) > 60 Cultures: Cultures 10/18/16 09:00 Wound Culture - Final Left Leg No growth. Exam - Constitutional Vitals: Temp Pulse Resp BP Pulse Ox 98.4 F 71 18 148/87 95 10/25/16 11:10 10/25/16 11:10 10/25/16 11:10 10/25/16 11:10 10/24/16 22:43 General appearance: cooperative, morbidly obese, no acute distress - Head Head exam: Present: atraumatic, normal inspection, normocephalic - Eye Eye exam: Present: EOMI, normal appearance, PERRL Pupils: Present: normal accommodation - ENT ENT exam: Present: mucous membranes moist - Neck Neck exam: Present: normal inspection - Respiratory Respiratory exam: Present: CTAB. Absent: rales, respiratory distress, rhonchi, wheezes - Cardiovascular Cardiovascular exam: Present: RRR, +S1, +S2 - GI/Abdominal GI/Abdominal exam: Present: distended (obese), normal bowel sounds, soft. Absent: tenderness - Extremities Exam Extremities exam: Present: pedal edema (Trace LLE). Absent: joint swelling, tenderness Additional comments: LLE erythema continues to improve and localized to the distal aspect of the left lower leg. Blister to the posterior calf has sloughed off and wound bed is beefy red without purulent drainage, tenderness, or foul odor. - Neurological Exam Neurological exam: Present: alert, oriented X3, no focal deficits - Psychiatric Psychiatric exam: Present: normal affect, normal mood - Skin Skin exam: Present: dry, intact, normal color, warm Consult Discharge Plan - Plan Referrals: Corine Clancy MD [Primary Care Provider] - 10/30/16 1:45 pm
--- NOTE | 2016-10-25 13:34 | Discharge Summary ---
Date of Encounter: 10/25/16 Time of Encounter: 13:30 - Discharge Diagnosis (1) Cellulitis Priority: Primary Status: Acute Qualifiers: Site of cellulitis: extremity Site of cellulitis of extremity: lower extremity Laterality: left Qualified Code(s): L03.116 - Cellulitis of left lower limb (2) Current use of [facility] anticoagulation Priority: Secondary Status: Chronic (3) Hypertension Priority: Secondary Status: Chronic Qualifiers: Hypertension type: essential hypertension Qualified Code(s): I10 - Essential (primary) hypertension (4) GERD (gastroesophageal reflux disease) Priority: Secondary Status: Chronic Qualifiers: Esophagitis presence: esophagitis presence not specified Qualified Code(s) : K21.9 - Gastro-esophageal reflux disease without esophagitis (5) Morbid obesity with BMI of 40.0-44.9, adult Priority: Secondary Status: Acute - Discharge Medications Prescriptions: Amoxicillin/Clavulanate [Augmentin] 875 mg PO BIDWM #14 tab Clotrimazole 1% CRM [Lotrimin 1%] 1 appl TP BID #1 each Sulfamethoxazole/Trimeth DS [Bactrim DS] 1 each PO BID #14 tablet Home Medications: Omeprazole [PriLOSEC] 20 mg PO DAILY 09/28/14 [History] Propranolol [Inderal] 10 mg PO BID 09/28/14 [History] Warfarin [Coumadin] 7.5 mg PO QAM 09/28/14 [History] FLUoxetine HCl [Prozac] 10 mg PO DAILY 10/14/16 [History] Tramadol HCl [Ultram] 50 mg PO TID PRN 10/14/16 [History] Amoxicillin/Clavulanate [Augmentin] 875 mg PO BIDWM #14 tab 10/25/16 [Rx] Clotrimazole 1% CRM [Lotrimin 1%] 1 appl TP BID #1 each 10/25/16 [Rx] Sulfamethoxazole/Trimeth DS [Bactrim DS] 1 each PO BID #14 tablet 10/25/16 [Rx] Allergies/Adverse Reactions: 3 Allergy/AdvReac Type Severity Reaction Status Date / Time citalopram [From Celexa] AdvReac Mild Headache Verified 10/13/16 21:57 Date of admission: 10/14/16 17:59 Primary care physician: Corine Clancy Consults: 10/16/16 09:32 Consult to PICC team [Consult to Invasive Line Access Team] [CONS] Routine Reason for Consult: hard stick, IV no longer patent Line Type: EPIV PICC line indications: terminologist Med/Antibiotic Call Completed: Yes 10/16/16 09:34 OT [Consult to Occupational Therapy] [CONS] Routine Comment: Evaluate, develop and implement POC Reason for Consult: Patient requires staff assistance to get up, states he is home alone frequently. Uses cane at home PT [Consult to Physical Therapy] [CONS] Routine Comment: Evaluate, develop and implement POC Reason for Consult: Patient requires staff assistance to get up, states he is home alone frequently. Uses cane at home 10/16/16 09:35 Consult to [employer] [CONS] Routine Reason for SW Consult: Patient requires staff assistance to get up, states he is home alone frequently. Uses cane at home. PT/OT consulted 10/21/16 19:01 Consult to Podiatry [CONS] Routine Consulting Provider: [facility] Reason for Consult: LLE cellulitis Time Notified: 19:02 Call Completed: Yes 10/22/16 09:11 Consult to Infectious Diseases [CONS] Routine Consulting Provider: Infectious Disease [place] Reason for Consult: cellulitis Call Completed: Yes Discharging clinician: Monico Hancock Anticipated date of discharge: 10/25/16 - Patient Status Disposition: Home Health Service Condition: Good Overall status at discharge: patient is progressing back to baseline - Discharge Instructions Instructions: Sulfamethoxazole/Trimethoprim (By mouth), Amoxicillin/ Clavulanate Potassium (By mouth), Butenafine (On the skin) Follow Up With: Corine Clancy MD [Primary Care Provider] - 10/30/16 1:45 pm - Diet and Activity Activity: resume usual activities as tolerated Diet: advance to your usual diet, diabetic diet, low fat, low cholesterol, low salt diet Hospital course: Mr. Villegas is a 66 year old male admitted for left lower extremity cellulitis with blister. Apparently a few changes and antibiotics were made but finally went infectious disease was involved IV vancomycin and Zosyn initially and later IV vancomycin with oral Augmentin and continued. Podiatry was involved. Suggested twice-daily dressing with Kerlix. Overall improvement has been noted. Discussed with infectious diseases morning and I think we can switch him to Bactrim and Augmentin and see if he continues to improve as outpatient. Dr. Hughes would like to see him in office next week. Home care ordered for daily dressing. 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 Patient PT/INR needs to be checked as usual to his family doctor' s office. Since patient will be on Bactrim he needs a follow-up BMP checked through family physician's office. Detailed discussion with patient and explained him the plan and precautions and follow-up details.. - Time Spent with Patient Total time spent providing and/or coordinating discharge services: Greater than 30 minutes - Constitutional Vitals: Temp Pulse Resp BP Pulse Ox 98.4 F 71 18 148/87 95 10/25/16 11:10 10/25/16 11:10 10/25/16 11:10 10/25/16 11:10 10/24/16 22:43 General appearance: Present: A&O X 3, morbidly obese, pleasant, no acute distress, answers questions appropriately - Head Head exam: Present: atraumatic, normocephalic - Eye Eye exam: Present: PERRL, conjuntiva pink, sclera anicteric Pupils: Present: PERRL - Neck Neck exam general surgery: Present: supple, trachea midline. Absent: lymphadenopathy - Respiratory Respiratory exam: Present: CTAB. Absent: accessory muscle use, rales, rhonchi, wheezes - Cardiovascular Cardiovascular exam: Present: RRR, +S1, +S2. Absent: diastolic murmur, gallop, rubs, systolic murmur - GI/Abdominal GI/Abdominal exam: Present: normal bowel sounds, soft, no peritoneal signs. Absent: distended, tenderness - Extremities Exam Extremities exam: Present: warm, radial pulses palpable and symmetrical. Absent : calf tenderness, cyanotic, pedal edema Additional comments: Left lower extremity examined. Redness has gone down to less shining color. Calf area is less swollen. Neuro vascular intact. Overall improvement noted. - Neurological Exam Neurological exam: Present: CN II-XII intact, oriented X3, no focal deficits. Absent: pronater drift, facial droop, speech deficit - Skin Skin exam: Present: dry, intact
--- NOTE | 2016-10-25 13:43 | Physician Discharge Referral ---
Home Health/Hosp Referral Info Transfer to: Home Health Attending Provider: Santi Provider in Charge Post Discharge: PCP - Diagnosis (1) Cellulitis Status: Acute (2) Current use of [facility] anticoagulation Status: Chronic (3) Hypertension Status: Chronic (4) GERD (gastroesophageal reflux disease) Status: Chronic (5) Morbid obesity with BMI of 40.0-44.9, adult Status: Acute - Respiratory Orders Smoking Cessation: Smoking cessation has been advised. For more information, call the [place] Tobacco Quit Line at 5-738-DJAP-NOW. - Dressing/Wound Care Site: Continue twice daily dressing changes to the LLE with adaptic and 4x4 dry sterile gauze applied to blisters with kerlix starting from toes to tibia and then apply sonia wrap from toes to tibia. Wound care orders written. Continue Clotrimazole cream to both feet as ordered. Follow-up with Dr. Hughes next week - Activity Activity Orders: Up ad kaylie - Services Needed Following services are medically necessary services: Longterm Care Orders: Continue twice daily dressing changes to the LLE with adaptic and 4x4 dry sterile gauze applied to blisters with kerlix starting from toes to tibia and then apply sonia wrap from toes to tibia. Wound care orders written. Continue Clotrimazole cream to both feet as ordered. Follow with Dr. Hughes next week Other Treatments: Check BMP and PT/INR twice daily and follow the results with family doctor - Transfer Medications Prescriptions: Amoxicillin/Clavulanate [Augmentin] 875 mg PO BIDWM #14 tab Clotrimazole 1% CRM [Lotrimin 1%] 1 appl TP BID #1 each Sulfamethoxazole/Trimeth DS [Bactrim DS] 1 each PO BID #14 tablet Home Medications: Omeprazole [PriLOSEC] 20 mg PO DAILY 09/28/14 [History] Propranolol [Inderal] 10 mg PO BID 09/28/14 [History] Warfarin [Coumadin] 7.5 mg PO QAM 09/28/14 [History] FLUoxetine HCl [Prozac] 10 mg PO DAILY 10/14/16 [History] Tramadol HCl [Ultram] 50 mg PO TID PRN 10/14/16 [History] Amoxicillin/Clavulanate [Augmentin] 875 mg PO BIDWM #14 tab 10/25/16 [Rx] Clotrimazole 1% CRM [Lotrimin 1%] 1 appl TP BID #1 each 10/25/16 [Rx] Sulfamethoxazole/Trimeth DS [Bactrim DS] 1 each PO BID #14 tablet 10/25/16 [Rx] Allergies/Adverse Reactions: 3 Allergy/AdvReac Type Severity Reaction Status Date / Time citalopram [From Celexa] AdvReac Mild Headache Verified 10/13/16 21:57 Certification: Further, I certify that my clinical findings support that this patient is homebound (i.e. absences from home require considerable and taxing effort and are for medical reasons or restorationism services or infrequently or short duration when for other reasons) because: Homebound Reason: Leaving home requires considerable and taxing effort due to condition Attestation: My signature below is to certify that this patient is under my care and that I, or nurse practitioner, or a physician's medical library assistant working with me, has a face-to -face encounter with this patient.
[2016-10-25] MEDS ORDERED: Aminoglycoside Consult 1 EACH MC ONE (14:49)
[2016-10-25] MEDS ORDERED: *HR* Warfarin 7.5 MG TABLET PO ONE (18:00)
== END 2016-10-25 14:50 | disposition home health service (06) | DRG 602 ==
LOC: EMEROO 21:17 → 3BNU 21:17 → SUATTDRO 10-14 17:59
PROVIDERS: ADMIT Internal Medicine; ATTEND Internal Medicine

== ENCOUNTER 2018-12-01 20:11 | Observation (INO) ==
[2018-12-01 21:10] LABS: Bilirubin,Urine Negative (Negative); Blood,Urine Small (Negative); Clarity,Urine Clear (Clear); Color,Urine Yellow (Yellow); Glucose,Urine (UA) Normal (Normal); Ketones,Urine Negative (Negative); Leukocyte Esterase,Urine Moderate (Negative); Nitrite,Urine Negative (Negative); Protein,Urine Negative (Neg-Trace); Urobilinogen,Urine Normal (Normal)
[2018-12-01 21:13] LABS: Bacteria,Urine None Seen per hpf (None-Few); Hyaline Casts,Urine None Seen per lpf (None-Few); RBC,Urine 0-3 per hpf (0-3); Squamous Epithelial Cell,Urine Moderate per lpf (None-Few)
[2018-12-01 21:17] LABS: Calcium Oxalate Crystals,Urine Present
[2018-12-01 21:24] LABS: Basophils % 0.5 %; Eosinophils # 0.2 K/mcL (0.0-0.6); Eosinophils % 2.5 %; Hematocrit 42.9 % (37.5-50.1); Hemoglobin 14.5 g/dL (12.9-16.9); Immature Granulocytes % 0.5 % (0-4); Lymphocytes # 1.5 K/mcL (0.6-4.6); Lymphocytes % 19.9 %; Mean Corpuscular HGB Conc 33.8 g/dL (31.6-35.5); Mean Corpuscular Hemoglobin 31.7 pg (28.0-33.3); Mean Corpuscular Volume 93.9 fL (83.0-100.0); Mean Platelet Volume 9.6 fL (9.4-12.4); Monocytes # 0.6 K/mcL (0.0-1.3); Monocytes % 7.4 %; Neutrophils # 5.3 K/mcL (1.6-8.9); Platelet Count 182 K/mcL (140-400); Red Blood Count 4.57 M/mcL (4.19-5.50); Red Cell Distribution Width 14.7 % (11.5-14.5); Segmented Neutrophils % 69.2 %; White Blood Count 7.7 K/mcL (4.3-11.1)
[2018-12-01 21:47] LABS: Alanine Aminotransferase 24 Units/L (7-52); Albumin 3.7 g/dL (3.5-5.7); Albumin/Globulin Ratio 1.2 (1.1-2.2); Alkaline Phosphatase 103 Units/L (34-104); Aspartate Amino Transferase 35 Units/L (13-39); BUN/Creatinine Ratio 20 (6-26); Bilirubin,Total 0.5 mg/dL (0.3-1.0); Blood Urea Nitrogen 21 mg/dL (8-23); Calcium 10.1 mg/dL (8.6-10.3); Carbon Dioxide 25 mEq/L (23-29); Chloride 107 mEq/L (98-107); Globulin 3.1 g/dL (2.4-3.5); Glucose 101 mg/dL (70-105); Osmolality,Calculated 291 (280-300); Potassium 4.5 mEq/L (3.5-5.1); Sodium 139 mEq/L (136-145); Total Protein 6.8 g/dL (6.4-8.9); Troponin I < 0.03 ng/mL (< 0.04); eGFR For African Americans > 60 (> 60); eGFR For Non-African Americans > 60 (> 60)
[2018-12-01] MEDS ORDERED: Lactulose Oral Soln 20 GM/30 ML UDC PO STA (22:20)
[2018-12-01 22:26] LABS: Prothrombin Time 23.2 Seconds (9.4-12.1)
[2018-12-01 22:56] LABS: Ethanol < 10 mg/dL (Less than 10)
[2018-12-02] MEDS ORDERED: Naloxone 0.4 MG/ML INJ IVP PRN (03:55)
[2018-12-02] MEDS ORDERED: Lactulose Oral Soln 20 GM/30 ML UDC PO ONE (03:56)
[2018-12-02 06:09] LABS: Hematocrit 39.3 % (37.5-50.1); Mean Corpuscular HGB Conc 33.1 g/dL (31.6-35.5); Mean Corpuscular Hemoglobin 31.4 pg (28.0-33.3); Mean Corpuscular Volume 94.9 fL (83.0-100.0); Mean Platelet Volume 9.4 fL (9.4-12.4); Platelet Count 147 K/mcL (140-400); Red Blood Count 4.14 M/mcL (4.19-5.50); Red Cell Distribution Width 14.8 % (11.5-14.5); White Blood Count 6.2 K/mcL (4.3-11.1)
[2018-12-02 06:16] LABS: INR 2.2
[2018-12-02 06:32] LABS: BUN/Creatinine Ratio 19 (6-26); Blood Urea Nitrogen 19 mg/dL (8-23); Calcium 9.7 mg/dL (8.6-10.3); Carbon Dioxide 27 mEq/L (23-29); Chloride 107 mEq/L (98-107); Glucose 115 mg/dL (70-105); Osmolality,Calculated 295 (280-300); Potassium 4.2 mEq/L (3.5-5.1); Sodium 141 mEq/L (136-145); eGFR For African Americans > 60 (> 60); eGFR For Non-African Americans > 60 (> 60)
[2018-12-02 06:46] LABS: Ferritin 97 ng/mL (20-250)
[2018-12-02] MEDS: FLUoxetine HCl 10 MG CAPSULE PO SCH (11:08)
[2018-12-02] MEDS: Clotrimazole 1% CRM 15 GM TUBE TP SCH ×2 (11:10→20:50)
[2018-12-02] MEDS: Bumetanide 1 MG TABLET PO SCH (11:16)
[2018-12-02] MEDS: Lactulose Oral Soln 20 GM/30 ML UDC PO SCH ×2 (14:38→20:50)
[2018-12-02] MEDS ORDERED: Warfarin perPT PO PRN (18:00)
[2018-12-03 07:24] VITALS: BP 123/70
[2018-12-03 07:29] LABS: INR 2.2; Prothrombin Time 25.4 Seconds (9.4-12.1)
[2018-12-03] MEDS: Lactulose Oral Soln 20 GM/30 ML UDC PO SCH (08:55)
[2018-12-03] MEDS: Bumetanide 1 MG TABLET PO SCH (08:55)
[2018-12-03] MEDS: Clotrimazole 1% CRM 15 GM TUBE TP SCH (08:56)
[2018-12-03] MEDS: FLUoxetine HCl 10 MG CAPSULE PO SCH (08:56)
[2018-12-03 12:37] LABS: Hepatitis B Surface Antigen Nonreactive (Nonreactive)
[2018-12-03 13:07] LABS: Hepatitis A Antibody IgM Nonreactive (Nonreactive); Hepatitis B Core IgM Nonreactive (Nonreactive); Hepatitis C Virus Antibody Nonreactive (Nonreactive)
[2018-12-04 13:28] LABS: AFP Tumor Marker Non-Pregnant 3 ng/mL (0-9)
[2018-12-05 06:16] LABS: F-Actin (sm muscle) Ab IgG 9 Units (0-19)
[2018-12-05 06:23] LABS: ANA IgG by ELISA NONE DETECTED (None Detected)
== END 2018-12-03 13:36 | disposition home or self-care (01) ==
LOC: EMEROOARM 20:11 → 3BNU 20:11
PROVIDERS: ADMIT Internal Medicine; ATTEND Internal Medicine

== ENCOUNTER 2020-12-29 21:13 | Inpatient (IN) ==
[2020-12-30] MEDS ORDERED: Ondansetron 4 MG/2 ML VIAL IVP PRN (04:57)
[2020-12-30] MEDS ORDERED: MOM Conc 10 ML UD.LIQ PO PRN (04:57)
[2020-12-30 05:48] LABS: Hematocrit 40.3 % (37.5-50.1); Hemoglobin 13.1 g/dL (12.9-16.9); Mean Corpuscular HGB Conc 32.5 g/dL (31.6-35.5); Mean Corpuscular Hemoglobin 30.5 pg (28.0-33.3); Mean Corpuscular Volume 93.9 fL (83.0-100.0); Mean Platelet Volume 9.6 fL (9.4-12.4); Platelet Count 148 K/mcL (140-400); Red Blood Count 4.29 M/mcL (4.19-5.50); Red Cell Distribution Width 13.9 % (11.5-14.5)
[2020-12-30 05:49] LABS: White Blood Count 13.6 K/mcL (4.3-11.1)
[2020-12-30 05:57] LABS: INR 2.4; Prothrombin Time 26.4 Seconds (9.4-12.1)
[2020-12-30] MEDS: 0.9 % Sodium Chloride 1,000 ML IVC SCH ×3 (06:02→17:53)
[2020-12-30 06:16] LABS: Alanine Aminotransferase 14 Units/L (7-52); Albumin 3.4 g/dL (3.5-5.7); Albumin/Globulin Ratio 1.1 (1.1-2.2); Alkaline Phosphatase 71 Units/L (34-104); Aspartate Amino Transferase 20 Units/L (13-39); BUN/Creatinine Ratio 18 (6-26); Bilirubin,Total 1.4 mg/dL (0.3-1.0); Blood Urea Nitrogen 20 mg/dL (8-23); Calcium 9.4 mg/dL (8.6-10.3); Carbon Dioxide 24 mEq/L (23-29); Chloride 104 mEq/L (98-107); Globulin 3.1 g/dL (2.4-3.5); Glucose 128 mg/dL (70-105); Osmolality,Calculated 284 (280-300); Potassium 3.7 mEq/L (3.5-5.1); Sodium 135 mEq/L (136-145); Total Protein 6.5 g/dL (6.4-8.9); Troponin I 0.05 ng/mL (< 0.04); eGFR For African Americans > 60 (> 60); eGFR For Non-African Americans > 60 (> 60)
[2020-12-30 06:28] LABS: Thyroid Stimulating Hormone 1.838 mcIU/mL (0.340-5.600)
[2020-12-30] MEDS: Vancomycin 2,000 MG/520 ML IV.SOLN IVPB SCH ×2 (08:33→10:16)
[2020-12-30] MEDS: Lactulose Oral Soln 20 GM/30 ML UDC PO SCH ×3 (08:34→19:38)
[2020-12-30] MEDS: cefTRIAXone 1,000 MG in 0.9 % Sodium Chloride Mini Bag 100 ML IVPB SCH (08:34)
[2020-12-30] MEDS ORDERED: Lactulose Oral Soln 20 GM/30 ML UDC PO SCH (09:00)
[2020-12-30] MEDS ORDERED: Acetaminophen 325 MG TABLET PO ONE (23:21)
[2020-12-31] MEDS: cefTRIAXone 1,000 MG in 0.9 % Sodium Chloride Mini Bag 100 ML IVPB SCH (07:29)
[2020-12-31] MEDS: Lactulose Oral Soln 20 GM/30 ML UDC PO SCH ×3 (07:29→19:54)
[2020-12-31 11:01] LABS: Hematocrit 37.4 % (37.5-50.1); Hemoglobin 12.5 g/dL (12.9-16.9); Immature Granulocytes % 0.4 % (0-4); Lymphocytes % 13.5 %; Mean Corpuscular HGB Conc 33.4 g/dL (31.6-35.5); Mean Corpuscular Hemoglobin 31.7 pg (28.0-33.3); Mean Corpuscular Volume 94.9 fL (83.0-100.0); Mean Platelet Volume 10.4 fL (9.4-12.4); Monocytes % 9.6 %; Platelet Count 138 K/mcL (140-400); Red Blood Count 3.94 M/mcL (4.19-5.50); Red Cell Distribution Width 13.7 % (11.5-14.5); Segmented Neutrophils % 74.3 %; White Blood Count 7.7 K/mcL (4.3-11.1)
[2020-12-31 11:02] LABS: Basophils % 0.3 %; Eosinophils # 0.2 K/mcL (0.0-0.6); Eosinophils % 1.9 %; Monocytes # 0.7 K/mcL (0.0-1.3); Neutrophils # 5.7 K/mcL (1.6-8.9)
[2020-12-31 11:19] LABS: BUN/Creatinine Ratio 13 (6-26); Blood Urea Nitrogen 13 mg/dL (8-23); Calcium 9.3 mg/dL (8.6-10.3); Carbon Dioxide 25 mEq/L (23-29); Chloride 106 mEq/L (98-107); Glucose 125 mg/dL (70-105); Magnesium 1.7 mg/dL (1.6-2.6); Osmolality,Calculated 282 (280-300); Phosphorous 1.8 mg/dL (2.7-4.5); Potassium 3.8 mEq/L (3.5-5.1); Sodium 135 mEq/L (136-145); eGFR For African Americans > 60 (> 60); eGFR For Non-African Americans > 60 (> 60)
[2020-12-31] MEDS: *HR* Heparin 5,000 UNIT/ML VIAL SQ SCH (16:44)
[2021-01-01 03:18] VITALS: O2SAT 95
[2021-01-01 05:41] LABS: Basophils % 0.4 %; Eosinophils # 0.2 K/mcL (0.0-0.6); Eosinophils % 2.2 %; Hematocrit 36.8 % (37.5-50.1); Immature Granulocytes % 0.5 % (0-4); Lymphocytes # 1.3 K/mcL (0.6-4.6); Lymphocytes % 17.2 %; Mean Corpuscular HGB Conc 32.6 g/dL (31.6-35.5); Mean Corpuscular Hemoglobin 30.8 pg (28.0-33.3); Mean Corpuscular Volume 94.4 fL (83.0-100.0); Mean Platelet Volume 10.4 fL (9.4-12.4); Monocytes # 0.7 K/mcL (0.0-1.3); Monocytes % 9.6 %; Neutrophils # 5.3 K/mcL (1.6-8.9); Platelet Count 152 K/mcL (140-400); Red Cell Distribution Width 13.8 % (11.5-14.5); Segmented Neutrophils % 70.1 %; White Blood Count 7.6 K/mcL (4.3-11.1)
[2021-01-01 05:55] LABS: BUN/Creatinine Ratio 14 (6-26); Blood Urea Nitrogen 14 mg/dL (8-23); Calcium 9.4 mg/dL (8.6-10.3); Carbon Dioxide 27 mEq/L (23-29); Chloride 106 mEq/L (98-107); Glucose 103 mg/dL (70-105); Magnesium 1.8 mg/dL (1.6-2.6); Osmolality,Calculated 289 (280-300); Phosphorous 2.2 mg/dL (2.7-4.5); Potassium 3.8 mEq/L (3.5-5.1); Sodium 139 mEq/L (136-145); eGFR For African Americans > 60 (> 60); eGFR For Non-African Americans > 60 (> 60)
[2021-01-01] MEDS: *HR* Heparin 5,000 UNIT/ML VIAL SQ SCH (06:29)
[2021-01-01 07:14] VITALS: BP 157/85; PULSE 81; TEMP 98.5
[2021-01-01] MEDS: cefTRIAXone 1,000 MG in 0.9 % Sodium Chloride Mini Bag 100 ML IVPB SCH (08:31)
[2021-01-01] MEDS: Lactulose Oral Soln 20 GM/30 ML UDC PO SCH (08:31)
== END 2021-01-01 12:22 | disposition home or self-care (01) | DRG 871 ==
LOC: 3BNU
PROVIDERS: ADMIT Student in an Organized Health Care Education/Training Program; ATTEND Student in an Organized Health Care Education/Training Program

== ENCOUNTER 2021-10-07 04:26 | Inpatient (IN) ==
[2021-10-07 06:30] LABS: Bacteria,Urine Few per hpf (None-Few); Bilirubin,Urine Negative (Negative); Blood,Urine Moderate (Negative); Clarity,Urine Clear (Clear); Color,Urine Light-Yellow (Yellow); Glucose,Urine (UA) Normal (Normal); Ketones,Urine Negative (Negative); Leukocyte Esterase,Urine Small (Negative); Mucus,Urine Few per lpf (None-Few); Nitrite,Urine Negative (Negative); PH,Urine 7.5 pH Units (5.0-8.0); Protein,Urine Negative (Neg-Trace); Specific Gravity,Urine 1.013 (1.010-1.025); Squamous Epithelial Cell,Urine Few per hpf (None-Few); Urobilinogen,Urine Normal (Normal)
[2021-10-07 06:35] LABS: Basophils % 0.2 %; Eosinophils # 0.1 K/mcL (0.0-0.6); Eosinophils % 0.4 %; Hemoglobin 14.5 g/dL (12.9-16.9); Immature Granulocytes % 0.5 % (0-4); Lymphocytes # 1.2 K/mcL (0.6-4.6); Lymphocytes % 8.4 %; Mean Corpuscular HGB Conc 33.7 g/dL (31.6-35.5); Mean Corpuscular Hemoglobin 32.2 pg (28.0-33.3); Mean Corpuscular Volume 95.6 fL (83.0-100.0); Monocytes # 0.8 K/mcL (0.0-1.3); Neutrophils # 11.9 K/mcL (1.6-8.9); Platelet Count 152 K/mcL (140-400); Red Cell Distribution Width 13.8 % (11.5-14.5); Segmented Neutrophils % 84.5 %; White Blood Count 14.1 K/mcL (4.3-11.1)
[2021-10-07 06:51] LABS: Alanine Aminotransferase 16 Units/L (7-52); Albumin 3.6 g/dL (3.5-5.7); Albumin/Globulin Ratio 1.1 (1.1-2.2); Alkaline Phosphatase 90 Units/L (34-104); Aspartate Amino Transferase 20 Units/L (13-39); BUN/Creatinine Ratio 11 (6-26); Bilirubin,Total 1.1 mg/dL (0.3-1.0); Blood Urea Nitrogen 15 mg/dL (8-23); Calcium 9.8 mg/dL (8.6-10.3); Carbon Dioxide 26 mEq/L (23-29); Chloride 105 mEq/L (98-107); Globulin 3.2 g/dL (2.4-3.5); Glucose 119 mg/dL (70-105); Osmolality,Calculated 284 (280-300); Potassium 4.1 mEq/L (3.5-5.1); Sodium 136 mEq/L (136-145); Total Protein 6.8 g/dL (6.4-8.9); Troponin I < 0.03 ng/mL (< 0.04)
[2021-10-07] MEDS ORDERED: Iopamidol - 370 500 ML MLS IVP ONE (07:30)
[2021-10-07 07:53] LABS: Bilirubin,Direct 0.2 mg/dL (0.0-0.2); Bilirubin,Indirect 0.9 mg/dL (0.0-1.0); Lipase 4 Units/L (11-82); Magnesium 1.7 mg/dL (1.6-2.6)
[2021-10-07] MEDS ORDERED: *HR* HYDROcodone/Acet 5/325 mg TABLET PO PRN (09:58)
[2021-10-07] MEDS ORDERED: *HR* OxyCODONE Immed Rel 5 MG TABLET PO PRN (09:58)
[2021-10-07] MEDS ORDERED: Acetaminophen 325 MG TABLET PO PRN (09:58)
[2021-10-07] MEDS ORDERED: Ondansetron 4 MG/2 ML VIAL IVP PRN (09:58)
[2021-10-07] MEDS ORDERED: Naloxone 0.4 MG/ML INJ IVP PRN (09:58)
[2021-10-07] MEDS: Nystatin POWDER 30 GM BOTTLE TP SCH ×3 (11:29→20:58)
[2021-10-07] MEDS: Piperacillin/Tazobactam 3.375 GM in 0.9 % Sodium Chloride Mini Bag 100 ML IVPB SCH ×2 (11:29→17:15)
[2021-10-07] MEDS ORDERED: Vancomycin 2,000 MG/520 ML IV.SOLN IVPB ONE (13:33)
[2021-10-07] MEDS: Lactulose Oral Soln 20 GM/30 ML UDC PO SCH ×2 (15:01→20:57)
[2021-10-07 15:19] LABS: ABG Base Excess -1 mEq/L (-2 to 3); ABG HCO3 22 mEq/L (21-27); ABG Oxygen Saturation 95 % (95-98); ABG PCO2 31 mmHg (35-45); ABG PH 7.45 pH Units (7.32-7.45); ABG PO2 72 mmHg (85-104); ABG TCO2 23 mEq/L (20-26)
[2021-10-07] MEDS ORDERED: Warfarin perPT PO PRN (18:00)
[2021-10-07 19:13] LABS: Amphetamine Screen,Urine Negative ng/mL (Cutoff=1000); Barbiturate Screen,Urine Negative ng/mL (Cutoff=200); Benzodiazepines Screen,Urine Negative ng/mL (Cutoff=200); Cannabinoid Screen,Urine Negative ng/mL (Cutoff = 50); Cocaine Screen,Urine Negative ng/mL (Cutoff= 300); Opiate Screen,Urine Negative ng/mL (Cutoff=300); Phencyclidine Screen,Urine Negative ng/mL (Cutoff=25)
[2021-10-08 05:40] LABS: Basophils % 0.3 %; Eosinophils % 0.2 %; Hematocrit 38.4 % (37.5-50.1); Immature Granulocytes % 0.5 % (0-4); Lymphocytes # 1.3 K/mcL (0.6-4.6); Lymphocytes % 10.2 %; Mean Corpuscular HGB Conc 33.9 g/dL (31.6-35.5); Mean Corpuscular Hemoglobin 32.6 pg (28.0-33.3); Mean Corpuscular Volume 96.2 fL (83.0-100.0); Monocytes # 0.8 K/mcL (0.0-1.3); Monocytes % 6.3 %; Neutrophils # 10.4 K/mcL (1.6-8.9); Platelet Count 125 K/mcL (140-400); Red Blood Count 3.99 M/mcL (4.19-5.50); Red Cell Distribution Width 13.9 % (11.5-14.5); Segmented Neutrophils % 82.5 %; White Blood Count 12.6 K/mcL (4.3-11.1)
[2021-10-08 05:52] LABS: Prothrombin Time 32.7 Seconds (9.4-12.1)
[2021-10-08 06:13] LABS: Calcium 9.1 mg/dL (8.6-10.3); Magnesium 1.8 mg/dL (1.6-2.6); Potassium 3.6 mEq/L (3.5-5.1); Thyroid Stimulating Hormone 2.201 mcIU/mL (0.340-5.600)
[2021-10-08] MEDS: Piperacillin/Tazobactam 3.375 GM in 0.9 % Sodium Chloride Mini Bag 100 ML IVPB SCH ×3 (06:32→21:03)
[2021-10-08] MEDS ORDERED: *HR* Enoxaparin 40 MG/0.4 ML SYRINGE SQ SCH (07:00)
[2021-10-08] MEDS: FLUoxetine 20 MG CAPSULE PO SCH (09:22)
[2021-10-08] MEDS: Multivit/Ca/Min/Fe/FA 1 TAB TABLET PO SCH (09:22)
[2021-10-08] MEDS: Nystatin POWDER 30 GM BOTTLE TP SCH ×3 (09:23→21:03)
[2021-10-08] MEDS: Lactulose Oral Soln 20 GM/30 ML UDC PO SCH ×3 (09:23→21:03)
[2021-10-08] MEDS: Vancomycin 1,500 MG/265 ML IV.SOLN IVPB SCH (15:08)
[2021-10-08] MEDS: 0.9 % Sodium Chloride 1,000 ML IVC SCH (15:13)
[2021-10-08] MEDS ORDERED: Vancomycin 2,000 MG/520 ML IV.SOLN IVPB SCH (16:00)
[2021-10-08] MEDS ORDERED: *HR* Warfarin 5 MG TABLET PO ONE (18:00)
[2021-10-08] MEDS ORDERED: Warfarin perPT PO PRN (18:00)
[2021-10-09] MEDS: Piperacillin/Tazobactam 3.375 GM in 0.9 % Sodium Chloride Mini Bag 100 ML IVPB SCH ×3 (03:32→22:18)
[2021-10-09] MEDS: Vancomycin 1,500 MG/265 ML IV.SOLN IVPB SCH ×2 (03:33→17:33)
[2021-10-09] MEDS: 0.9 % Sodium Chloride 1,000 ML IVC SCH (06:16)
[2021-10-09] MEDS: FLUoxetine 20 MG CAPSULE PO SCH (09:16)
[2021-10-09] MEDS: Multivit/Ca/Min/Fe/FA 1 TAB TABLET PO SCH (09:16)
[2021-10-09] MEDS: Lactulose Oral Soln 20 GM/30 ML UDC PO SCH ×3 (09:16→22:25)
[2021-10-09] MEDS: Nystatin POWDER 30 GM BOTTLE TP SCH ×3 (09:16→22:25)
[2021-10-09 12:30] LABS: Basophils % 0.4 %; Eosinophils # 0.2 K/mcL (0.0-0.6); Eosinophils % 2.4 %; Hematocrit 36.7 % (37.5-50.1); Hemoglobin 12.3 g/dL (12.9-16.9); Immature Granulocytes % 0.4 % (0-4); Lymphocytes # 1.2 K/mcL (0.6-4.6); Lymphocytes % 15.3 %; Mean Corpuscular HGB Conc 33.5 g/dL (31.6-35.5); Mean Corpuscular Hemoglobin 32.8 pg (28.0-33.3); Mean Corpuscular Volume 97.9 fL (83.0-100.0); Mean Platelet Volume 10.2 fL (9.4-12.4); Monocytes # 0.6 K/mcL (0.0-1.3); Monocytes % 8.1 %; Neutrophils # 5.5 K/mcL (1.6-8.9); Platelet Count 137 K/mcL (140-400); Red Blood Count 3.75 M/mcL (4.19-5.50); Red Cell Distribution Width 14.4 % (11.5-14.5); Segmented Neutrophils % 73.4 %; White Blood Count 7.5 K/mcL (4.3-11.1)
[2021-10-09 12:35] LABS: INR 2.1; Prothrombin Time 23.8 Seconds (9.4-12.1)
[2021-10-09 12:47] LABS: Calcium 9.1 mg/dL (8.6-10.3); Magnesium 1.9 mg/dL (1.6-2.6); Phosphorous 1.8 mg/dL (2.7-4.5); Potassium 3.5 mEq/L (3.5-5.1)
[2021-10-09] MEDS ORDERED: Potassium Phosphate 44 MEQ in 0.9 % Sodium Chloride 250 ML IVPB ONE (13:19)
[2021-10-09] MEDS ORDERED: *HR* Warfarin 5 MG TABLET PO ONE (18:00)
[2021-10-10 02:35] LABS: Basophils % 0.4 %; Eosinophils # 0.2 K/mcL (0.0-0.6); Eosinophils % 2.9 %; Hematocrit 35.1 % (37.5-50.1); Hemoglobin 11.8 g/dL (12.9-16.9); Immature Granulocytes % 0.4 % (0-4); Lymphocytes # 1.5 K/mcL (0.6-4.6); Lymphocytes % 19.2 %; Mean Corpuscular HGB Conc 33.6 g/dL (31.6-35.5); Mean Corpuscular Hemoglobin 32.4 pg (28.0-33.3); Mean Corpuscular Volume 96.4 fL (83.0-100.0); Mean Platelet Volume 10.2 fL (9.4-12.4); Monocytes # 0.7 K/mcL (0.0-1.3); Neutrophils # 5.2 K/mcL (1.6-8.9); Platelet Count 143 K/mcL (140-400); Red Blood Count 3.64 M/mcL (4.19-5.50); Red Cell Distribution Width 14.2 % (11.5-14.5); Segmented Neutrophils % 68.1 %; White Blood Count 7.7 K/mcL (4.3-11.1)
[2021-10-10 02:41] LABS: INR 2.1; Prothrombin Time 23.6 Seconds (9.4-12.1)
[2021-10-10] MEDS: Piperacillin/Tazobactam 3.375 GM in 0.9 % Sodium Chloride Mini Bag 100 ML IVPB SCH ×2 (02:53→10:42)
[2021-10-10] MEDS: Vancomycin 1,500 MG/265 ML IV.SOLN IVPB SCH (02:53)
[2021-10-10 02:54] LABS: Albumin 2.8 g/dL (3.5-5.7); Albumin/Globulin Ratio 1.2 (1.1-2.2); Bilirubin,Direct 0.2 mg/dL (0.0-0.2); Bilirubin,Indirect 0.4 mg/dL (0.0-1.0); Bilirubin,Total 0.6 mg/dL (0.3-1.0); Calcium 8.6 mg/dL (8.6-10.3); Globulin 2.4 g/dL (2.4-3.5); Magnesium 1.8 mg/dL (1.6-2.6); Phosphorous 2.7 mg/dL (2.7-4.5); Total Protein 5.2 g/dL (6.4-8.9)
[2021-10-10] MEDS: 0.9 % Sodium Chloride 1,000 ML IVC SCH ×2 (03:04→18:42)
[2021-10-10] MEDS: Nystatin POWDER 30 GM BOTTLE TP SCH ×3 (09:10→21:34)
[2021-10-10] MEDS: FLUoxetine 20 MG CAPSULE PO SCH (09:10)
[2021-10-10] MEDS: Multivit/Ca/Min/Fe/FA 1 TAB TABLET PO SCH (09:10)
[2021-10-10] MEDS: Lactulose Oral Soln 20 GM/30 ML UDC PO SCH ×3 (09:10→21:33)
[2021-10-10] MEDS ORDERED: cephALEXin 500 MG CAPSULE PO SCH (13:00)
[2021-10-11] MEDS: FLUoxetine 20 MG CAPSULE PO SCH (07:42)
[2021-10-11] MEDS: Multivit/Ca/Min/Fe/FA 1 TAB TABLET PO SCH (07:43)
[2021-10-11] MEDS: Nystatin POWDER 30 GM BOTTLE TP SCH ×2 (07:45→15:42)
[2021-10-11] MEDS: Lactulose Oral Soln 20 GM/30 ML UDC PO SCH ×2 (07:45→15:42)
[2021-10-11 08:46] LABS: INR 1.8; Prothrombin Time 20.2 Seconds (9.4-12.1)
[2021-10-11] MEDS ORDERED: cefTRIAXone 1,000 MG in Water for inj. (sterile) 10 ML IVP SCH (09:00)
[2021-10-11] MEDS: 0.9 % Sodium Chloride 1,000 ML IVC SCH ×2 (09:25→09:26)
[2021-10-11 10:38] VITALS: BP 126/73; PULSE 56; TEMP 98; O2SAT 97
[2021-10-11 15:30] LABS: Influenza A PCR Negative (Negative); Influenza B PCR Negative (Negative); Resp. Syncytial Virus PCR Negative (Negative)
[2021-10-11 15:57] LABS: SARS-CoV-2 by PCR (In House) Negative (Negative)
[2021-10-11] MEDS ORDERED: *HR* Warfarin 4 MG TABLET PO ONE (18:00)
[2021-10-11] MEDS ORDERED: Lactulose Oral Soln 20 GM/30 ML UDC PO SCH (21:00)
[2021-10-12] MEDS ORDERED: Cefdinir 300 MG CAPSULE PO SCH (09:00)
== END 2021-10-11 17:15 | DRG 602 ==
LOC: EMEROOARM 04:26 → 3BNU 04:26 → SUATTDRO 15:40
PROVIDERS: ADMIT Pharmacist; ATTEND Internal Medicine